=== PATIENT | male | born 1960 | race Caucasian/White ===

== ENCOUNTER 2025-01-24 13:34 | Outpatient (REF) | payer MEDICARE, MEDICAID, SELFPAY ==
[2025-01-24 18:27] LABS: MANUAL DIFF FLAG NO
[2025-01-24 18:31] LABS: Appearance Urine Clear; Glucose Urine UA Negative (Negative); PH 6.0 (5.0-9.0); Specific Gravity - Urine 1.010 (1.005-1.025); UMIC TRIGGER UACC YES
[2025-01-24 18:39] LABS: Hematocrit 42.3 % (42.0-52.0); Hemoglobin 14.1 g/dl (14.0-18.0); Imm Gran Abs Auto 0.05 X10*3/uL (0.00-0.03); Imm Gran Pct Auto 0.6 % (0.0-0.4); Lymphocytes Absolute Auto 1.2 X10*3/uL (1.2-4.9); Mean Corpuscular HGB Conc 33.3 g/dl (31.0-36.0); Mean Corpuscular Hemoglobin 30.7 pg (27.0-33.0); Mean Corpuscular Volume 92.2 fL (80.0-98.0); NRBC Abs Auto 0.000 X10*3/uL (0.0-0.012); NRBC Pct Auto 0.0 /100WBC (0.0-0.2); Platelet Count 313 X10*3/uL (160-400); Red Blood Count 4.59 X10*6/uL (4.60-5.80); White Blood Count 8.8 X10*3/uL (4.8-10.8)
[2025-01-24 18:47] LABS: UACC Culture Trigger YES
[2025-01-24 19:32] LABS: Alanine Aminotransferase 22 U/L (0-40); Albumin Level 4.5 g/dL (3.5-5.0); Alkaline Phosphatase 95 U/L (39-117); Anion Gap 14 (12-20); Aspartate Amino Transferase 20 U/L (5-37); Blood Urea Nitrogen 35 mg/dL (9-16); Calcium 8.6 mg/dL (8.4-10.2); Carbon Dioxide 22 mmol/L (22-29); Chloride 112 mmol/L (96-108); Cholesterol 164 mg/dL (<200); Estimated Glomerular Filt Rate 19; HDL Cholesterol 49 mg/dL (>40); Magnesium 2.2 mg/dL (1.6-2.6); Potassium 4.0 mmol/L (3.3-5.1); Sodium 144 mmol/L (135-145); Total Protein 6.8 g/dL (6.5-8.0); Triglycerides 153 mg/dL (<150)
[2025-01-25 00:08] LABS: Folate 5.4 ng/mL (> or = 4.0); Vitamin B12 215 pg/mL (200-900)
[2025-01-25 08:16] LABS: HBS Num1 0.00 mIU/mL (0-7.99); HBsAGNum1 0.40 S/CO (0.00-0.99); HIV Num 1 0.10 S/CO (0.00-0.99); Hepatitis B Surface Antigen Negative (Negative); ~HepC Num1 0.11 S/CO (0.00-0.79); ~Hepatitis B Surface Antibody NONREACTIVE (Nonreactive); ~Hepatitis C Antibody Nonreactive (Nonreactive)
[2025-01-25 08:21] LABS: Syphilis Screen Nonreactive (Nonreactive)
[2025-01-30 04:18] LABS: VITAMIN D (1,25 OH) D3 22 pg/mL; Vit D (1,25-Dihydroxy) Total 22 pg/mL (18-72); Vitamin D (1,25 OH) D2 <8 pg/mL
== END 2025-01-24 13:35 | disposition home or self-care (01) ==
LOC: HO.HKASLDS 13:34
PROVIDERS: PCP Student in an Organized Health Care Education/Training Program; Visit Provider Student in an Organized Health Care Education/Training Program
DX: F31.9 Bipolar disorder, unspecified (principal); J44.9 Chronic obstructive pulmonary disease, unspecified; L60.2 Onychogryphosis; L30.9 Dermatitis, unspecified; I10 Essential (primary) hypertension; Z93.59 Other cystostomy status; N18.4 Chronic kidney disease, stage 4 (severe); K59.00 Constipation, unspecified; L85.3 Xerosis cutis; E78.5 Hyperlipidemia, unspecified; E03.9 Hypothyroidism, unspecified; Z13.31 Encounter for screening for depression; Z13.39 Encounter for screening examination for other mental health and behavioral disorders; Z13.1 Encounter for screening for diabetes mellitus
CPT/HCPCS: 36415; 80053; 80061; 81001; 82607; 82652; 82746; 83036; 83735; 84443; 85025; 86706; 86780; 86803; 87086; 87088; 87186; 87340; 87389; 96127; 99202

== ENCOUNTER 2025-01-24 13:34 | Outpatient (AMB) | payer MEDICARE, MEDICAID, SELFPAY ==
--- NOTE | 2025-01-24 13:37 | A.OFFPC_ITS ---
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 Accompanied by: Care Provider Allergies No Known Allergies Allergy (Verified 01/24/25 13:42) Tobacco use date assessed: 01/24/25 Fall risk assessment: No Falls in past year Last assessed Fall Risk: 01/24/25 Dental Screening Dental Screen Date: 01/24/25 Did you have a dental visit in the last 12 months?: No Did you have a dental problem in the last 6 months where you did not have access to dental care?: No Was dental information given to patient?: No HPI HPI Comments History of Present Illness Details History of Present Illness The patient is a 64 year old male presenting to [facility] primary care and for medication management. Bipolar Disorder: The patient has a known history of bipolar disorder, specified as type 1 during the visit. His medications for this condition include paroxetine, trazodone, lamotrigine, and bupropion. Chronic Obstructive Pulmonary Disease: The patient has a diagnosis of COPD and a history of smoking for approximately six months. He quit smoking more than six months ago. He uses an albuterol inhaler and is also on fluticasone/salmeterol. Hypertension: The patient has a diagnosis of hypertension, for which he takes amlodipine 5 mg. He was not aware of this diagnosis or the reason for taking the medication. Suprapubic Catheterization: He has a suprapubic catheter in place for bladder issues and is followed by a urologist. He recently experienced bladder spasms and nocturnal leakage, for which Myrbetriq was started within the last week. He also recently completed a 7-day course of Bactrim DS for a urinary tract infection prescribed by his urologist. Chronic Kidney Disease, Stage 4: He has a diagnosis of stage 4 chronic kidney disease. He is not on dialysis and is able to void. Constipation: The patient has a history of constipation and does not have a regular bowel pattern, sometimes going days without a bowel movement. He has been with his current caregiver for about two weeks and has no bowel regimen in place. Xerosis Cutis (Dry Skin): His caregiver reports that his skin is very dry and that he itches his lower legs. Hyperlipidemia: The patient has a diagnosis of hyperlipidemia, for which he takes simvastatin. Hypothyroidism: He has a diagnosis of hypothyroidism and takes levothyroxine. Surgical History: - Suprapubic catheter placement - The patient denies any surgical histor y. Medications: - Albuterol inhaler for COPD - Amlodipine 5 mg for hypertension - Simvastatin for hyperlipidemia - Paroxetine for bipolar disorder - Trazodone for bipolar disorder and sle ep - Myrbetriq for bladder spasms - Levothyroxine for hypothyroidism - Lamotrigine for bipolar disorder - Fluticasone/salmeterol inhaler for FANS CLERK D - Bupropion for bipolar disorder - Bactrim DS (recently completed course for UTI) Social History: - Tobacco Use: He is a former smoker, jesse hopper smoked for about six months and quit more than six months ago. - Living Situation: The patient previous ly [facility], including [facility] and [facility]. - He now lives in the community with a gaviota curiel. - Diet: He eats regular food but is terrell tulous, leading to caregiver concern for possible aspiration. Family History: No family history was discussed. Diagnostic Results: - Labs: Last hemoglobin A1c from the pre vious year was around 5%. Past Medical History - Bipolar 1 disorder - Chronic Obstructive Pulmonary Disease - Hypertension - Chronic kidney disease, stage 4 - Hyperlipidemia - Hypothyroidism - History of bladder spasms - History of constipation - History of urinary tract infections - History of institutionalization in [facility] Health Maintenance - Comprehensive blood work will be drawn , including a CBC, CMP, HbA1c, lipid panel, TSH, urinalysis, vitamin levels, and infectious disease screening. - A Cologuard test will be ordered for [place] cancer screening. - A referral to podiatry will be placed for evaluation and management of his thickened toenails. - The caregiver was advised that the pat ient does not need a referral to see a dentist or an power chisel operator. - The patient will follow up in two week s to review the results of all tests. [facility] Medical History (Updated 01/25/25 @ 12:38 by John Robertsno MD) Hyperlipidemia Xerosis cutis Chronic kidney disease (CKD), stage 4 Suprapubic catheter Hypertension UTI (urinary tract infection) Screening for heart disease Eczema Thickening of toenail Bipolar 1 disorder Constipation Vitamin D deficiency Depressive disorder Personality disorder Bipolar disorder Chronic kidney disease Myopia Obstructive and reflux uropathy, unspecified Hypothyroidism Type 2 diabetes mellitus COPD (chronic obstructive pulmonary disease) Social History (Updated 01/24/25 @ 13:47 by Lisandro Castañeda CMA) Housing: House Alcohol intake: former Patient Tobacco Use Status: Former Tobacco user e-Cigarette/Vaping Use: Never Used Second Hand Smoke Exposure: No service: No Current occupational status: disabled Cognitive needs: No Hearing needs: No Vision needs: Yes Questionnaire PHQ-9 Over the last 2 weeks, how often have you been bothered by any of the following problems? 1. Little interest or pleasure in doing things: not at all 2. Feeling down, depressed, or hopeless: not at all 3. Trouble falling or staying asleep, or sleeping too much: not at all 4. Feeling tired or having little energy: not at all 5. Poor appetite or overeating: not at all 6. Feeling bad about yourself - or that you are a failure or have let yourself or your family down: not at all 7. Trouble concentrating on things, such as reading the newspaper or watching television: not at all 8. Moving or speaking so slowly that other people could have noticed. Or the opposite - being so fidgety or restless that you have been moving around a lot more than usual: not at all 9. Thoughts that you would be better off or of hurting yourself in some way: not at all Total score: 0 Depression Screening Interpretation: Negative Depression Screening Done: Yes 22648 - PHQ-9 Billing: Yes Source: Developed by Drs. Oskar Dubon, Latanya Henry, John Aleman and colleagues, with an educational gonzalo from [employer]. Thrive Questionnaire Date Thrive assessed: 01/24/25 I am a: Parent/Caregiver What is your living situation today?: I have a steady place to live Within the past 12 months, did the food you bought not last and you didn't have the money to get more?: I choose not to answer this question Within the past 12 months, did you worry whether your food would run out before you got money to buy more?: Never true Do you have trouble paying for medicines?: No Do you have trouble getting transportation to medical appointments?: No Do you have trouble paying your heating and electricity bill?: No Do you have trouble taking care of your child, family member or friend?: No Are you currently unemployed and looking for a job?: No Are you interested in more education?: No Please select the resources that you would like help with: None Currently or been in a relationship where the following occur: No concerns reported THRIVE Score: 0 AUDIT C Alcohol Use Questionnaire (AUDIT-C) 1. How often do you have a drink containing alcohol?: Never Total Score: 0 RAMÍREZ-7 AMB Questionnaire RAMÍREZ-7 Date RAMÍREZ - 7 assessed: 01/24/25 Feeling nervous, anxious, or on edge: 1 = Several days Not being able to stop or control worryin = Not at all Worrying too much about different things: 1 = Several days Trouble relaxin = Nearly every day Being so restless that it is hard to sit still: 0 = Not at all Becoming easily annoyed or irritable: 0 = Not at all Feeling afraid as if something awful might happen: 0 = Not at all Total RAMÍREZ-7 score (0-4 normal; 5-9 mild; 10-14 moderate; 15-21 severe): 5 Source: Developed by Drs. Oskar Dubon, Latanya Henry, John Aleman and colleagues, with an educational gonzalo from [employer]. RAMÍREZ-7 Assessment Billing RAMÍREZ-7 Assessment Tool: RAMÍREZ-7 Assessment 26353 Review of Systems Narrative Review of Systems - Constitutional: Reports feeling good. - Integumentary: Caregiver reports the patient has very dry skin and pruritus of the lower legs. - Respiratory: Denies asthma. - Gastrointestinal: Reports history of constipation with no regular bowel pattern. - Genitourinary: Reports bladder spasms and nocturnal leakage. 10-point ROS reviewed and negative except as noted in HPI Physical exam (Primary Care) Vital Signs: Last Vital Signs Temp 97.4 F 01/24/25 13:48 Pulse 102 H 01/24/25 13:48 Resp 22 H 01/24/25 13:48 BP 115/73 01/24/25 13:48 Pulse Ox 93 01/24/25 13:48 Oxygen Delivery Method Room Air 01/24/25 13:48 BMI result Body Mass Index 25.3 Tobacco/Smoking Status: Tobacco use Status Tobacco use date assessed 01/24/25 01/24/25 13:51 Patient Tobacco Use Status Former Tobacco user 01/24/25 13:51 e-Cigarette/Vaping Use Never Used 01/24/25 13:51 PHQ-9: PHQ-9 Score PHQ-9: Total score 0 01/24/25 14:24 Depression Screening Interpretation: Negative Thrive Assessment: Date of Thrive Assessment Date Thrive assessed 01/24/25 01/24/25 13:40 Currently or been in a relationship where the following occur: No concerns reported Narrative Physical Exam General: Well-appearing, in no acute distress. Patient is 64 years old. Vital signs: Within normal limits. HEENT: Normocephalic, atraumatic. PERRLA, EOMI. Conjunctiva clear, sclera anicteric. Oropharynx clear, mucous membranes moist. TMs intact bilaterally. Neck: Supple, no lymphadenopathy, no thyromegaly, no JVD or carotid bruits. Cardiovascular: RRR, normal S1/S2, no murmurs, rubs, or gallops. Peripheral pul ses 2+ and symmetric. No edema. Respiratory: Lungs clear to auscultation bilaterally, no wheezes, rales, or rhonchi. Normal effort. Patient has a history of COPD. Abdomen: Soft, non-tender, non-distended. Normoactive bowel sounds. No hepatosplenomegaly, no masses. Suprapubic catheter in place with brittany-colored urine in the leg bag. MSK: Full range of motion, no joint swelling or deformity. Normal gait. Long, yellow, thickened nails noted. Skin: Warm, dry, intact. No rashes, lesions, or pallor. Dry skin noted, with thickened, reddened, excoriated rash above the left medial ankle. Neuro: Alert and oriented x3. Cranial nerves II-XII intact. Strength 5/5 throughout. Sensation intact. Reflexes 2+ symmetric. Normal coordination and gait. Psych: Appropriate mood and affect. Normal judgment and insight. History of bipolar disorder type 1. Coding Level of Care Code New Pt Level 4 (73283) Diagnoses Bipolar 1 disorder F31.9 COPD (chronic obstructive pulmonary disease) J44.9 Thickening of toenail L60.2 Eczema L30.9 Hypertension I10 Suprapubic catheter Z93.59 Chronic kidney disease (CKD), stage 4 N18.4 Constipation K59.00 Xerosis cutis L85.3 Hyperlipidemia E78.5 Hypothyroidism E03.9 Screening for heart disease Z13.6 Additional Codes RAMÍREZ-7 Assessment Billing - RAMÍREZ-7 Assessment Tool: RAMÍREZ-7 Assessment 23415 ([id number]) PHQ-9 - 43603 - PHQ-9 Billing: Yes ([id number]) Assessment & Plan Assessment & Plan (1) Bipolar 1 disorder: Code(s): F31.9 - Bipolar disorder, unspecified Category: Medical (2) COPD (chronic obstructive pulmonary disease): Code(s): J44.9 - Chronic obstructive pulmonary disease, unspecified Category: Medical (3) Thickening of toenail: Code(s): L60.2 - Onychogryphosis Category: Medical (4) Eczema: Code(s): L30.9 - Dermatitis, unspecified Category: Medical (5) Hypertension: Code(s): I10 - Essential (primary) hypertension Category: Medical (6) Suprapubic catheter: Code(s): Z93.59 - Other cystostomy status Category: Medical (7) Chronic kidney disease (CKD), stage 4: Code(s): N18.4 - Chronic kidney disease, stage 4 (severe) Category: Medical (8) Constipation: Code(s): K59.00 - Constipation, unspecified Category: Medical (9) Xerosis cutis: Code(s): L85.3 - Xerosis cutis Category: Medical (10) Hyperlipidemia: Code(s): E78.5 - Hyperlipidemia, unspecified Category: Medical (11) Hypothyroidism: Code(s): E03.9 - Hypothyroidism, unspecified Category: Medical (12) Screening for heart disease: Code(s): Z13.6 - Encounter for screening for cardiovascular disorders Category: Medical Plan Consent The process for Cologuard testing was explained to the patient's caregiver as an alternative to a colonoscopy for colon cancer screening. It was described that a kit would be mailed to the home, the patient would provide a stool sample in a container, add a fixative liquid, and mail the kit back. The caregiver agreed to this plan, noting it would be better than having the patient undergo sedation for a colonoscopy, and confirmed he could complete the test once his constipation is managed. Patient was informed and verbally consented to the use of an ambient scribe for clinic note documentation during this visit. Plan 1. Bipolar 1 Disorder - A referral will be placed for a behavioral health/psychiatry outpatient consultation for ongoing management. - An EKG will be ordered to monitor for QTc prolongation, given his current psychiatric medications. 2. Chronic Obstructive Pulmonary Disease - An albuterol sulfate inhaler will be prescribed, to be used 2 puffs every 6 hours as needed. 3. Constipation - Prescribing polyethylene glycol, to be taken in the morning and at night until bowel movements become regular, then tapering to nightly. 4. Dermatitis - Lac-Hydrin will be prescribed for generalized xerosis (dry skin). - Triamcinolone 0.1% topical cream will be prescribed for the excoriated rash on his lower leg. - The caregiver was advised to keep the affected area covered to prevent secondary infection from scratching. 5. Suprapubic Catheterization - The patient will continue to follow with his urologist for catheter management, with his next appointment on the of this month. - It was recommended that the urology service should be responsible for ordering his catheter supplies. Discussion Notes I met with the patient and his caregiver today to establish care. We reviewed his complex medical history, including bipolar 1 disorder, COPD, hypertension, stage 4 CKD, and hypothyroidism, as well as his current medication list. The caregiver voiced several concerns, including the patient's constipation, dry and itchy skin, and the need for medication refills and referrals. I explained my plan to order comprehensive baseline lab work and an EKG to get an overall pic ture of his health and monitor for medication side effects. I will send prescriptions for polyethylene glycol for constipation, an albuterol inhaler for COPD, Lac-Hydrin for dry skin, and triamcinolone cream for his dermatitis. I placed referrals for psychiatry and podiatry and advised the caregiver to schedule appointments with a dentist and power chisel operator, which do not need referrals. We discussed colon cancer screening, and after explaining the Cologuard test as a less invasive option than colonoscopy, the caregiver provided consent to proceed. We also discussed that the urology service should be responsible for managing his suprapubic catheter supplies. A follow-up visit is scheduled in two weeks to review all results and adjust the plan as needed. Patient Instructions - We are sending several prescriptions for you: polyethylene glycol for constipation, an albuterol inhaler for breathing, Lac-Hydrin for dry skin, and a steroid cream (triamcinolone) for the rash on your leg. - For the constipation, take the polyethylene glycol in the morning and at night. Once you are having regular bowel movements, you can take it just once at night. - Please go to the lab in our building to have blood tests and an EKG (heart tracing) done. - We have ordered a colon cancer screening test (Cologuard) that will be mailed to your home. Please follow the instructions to collect a stool sample and mail it back. - We are making referrals for you to see a foot doctor (podiatry) and a mental health doctor (psychiatry). Their offices will contact you. - Please make appointments to see a dentist for your teeth and an eye doctor for your glasses. - Continue to see your urologist for your bladder catheter. You should speak with them about ordering your catheter supplies. - Please return for a follow-up appointment in two weeks to go over your test results. Medical Decision Making This is a 64-year-old male with a complex medical and psychiatric history who presents to [facility] care after recently transitioning from a long-term care facility to living in the community. The patient has multiple chronic conditions including bipolar 1 disorder, COPD, hypertension, stage 4 CKD, and hypo thyroidism. Immediate concerns raised by his caregiver, including constipation, xerosis with associated dermatitis, and the need for a rescue inhaler, were addressed with new prescriptions for polyethylene glycol, topical triamcinolone and Lac-Hydrin, and an albuterol inhaler. Due to his multiple psychiatric medications that can affect cardiac conduction, an EKG was ordered to assess his QTc interval. Comprehensive baseline labs were ordered to establish a new baseline for his multiple chronic conditions, particularly his renal function, glycemic status, and lipids. For health maintenance, a Cologuard test was ordered as a non-invasive colon cancer screening tool, given the logistical challenges of a colonoscopy. Continuity of care was established by placing referrals to psychiatry for management of his bipolar disorder and podiatry for his significant onychauxis. The plan is to follow up in two weeks to review all test results and make any necessary adjustments to his management plan. Total Time Statement 30 min Total time spent caring for the patient today includes pre-visit chart review, documentation, review of laboratory and diagnostic imaging results, medication reconciliation, medically necessary evaluation, counseling on diagnoses, care coordination, ordering appropriate tests and medications, review of tests performed by other providers, reporting test results to the patient, and communication with other healthcare providers. Orders: Orders Hepatitis B Surface Antigen 01/24/25 Z13.9 - Encounter for screening, unspecified Hepatitis C Antibody 01/24/25 Z13.9 - Encounter for screening, unspecified TSH reflex Free T4 01/24/25 Z13.9 - Encounter for screening, unspecified Lipid Panel 01/24/25 Z13.9 - Encounter for screening, unspecified Vitamin D 1,25 dihydroxy 01/24/25 Z13.9 - Encounter for screening, unspecified Hepatitis B Surface Antibody 01/24/25 Z13.9 - Encounter for screening, unspecified AMB EKG-In Office 01/24/25 Z13.6 - Encounter for screening for cardiovascular disorders Complete Blood Count Auto Diff 01/24/25 Z13.9 - Encounter for screening, unspec ified Syphilis Screen 01/24/25 Z13.9 - Encounter for screening, unspecified Comprehensive Met. Panel 01/24/25 Z13.9 - Encounter for screening, unspecified HIV Ab/Ag 01/24/25 Z13.9 - Encounter for screening, unspecified UA CC w/rflx Micro + Cult 01/24/25 Z13.9 - Encounter for screening, unspecified Vitamin B12 and Folate 01/24/25 Z13.9 - Encounter for screening, unspecified Hemoglobin A1c 01/24/25 Z13.9 - Encounter for screening, unspecified Magnesium 01/24/25 Z13.9 - Encounter for screening, unspecified Referrals Psychiatry Outpatient Consultation Service F31.9 - Bipolar disorder, unspecified Podiatry Referral L60.2 - Onychogryphosis Behavioral Health Referral F31.9 - Bipolar disorder, unspecified Cologuard Test Z12.11 - Encounter for screening for malignant neoplasm of colon, Z12.12 - Encounter for screening for malignant neoplasm of rectum Medications: New polyethylene glycol 3350 17 grams PO BID 100 ea 0RF K59.00 - Constipation, unspecified albuterol sulfate 90 mcg/actuation 1 puff inhalation Q4-6H 8.5 grams 0RF J44.9 - Chronic obstructive pulmonary disease, unspecified triamcinolone acetonide 0.1% 1 appl topical BID 80 grams 0RF L30.9 - Dermatitis, unspecified ammonium lactate 5% (Lac-Hydrin Five) 1 appl topical BID 226 grams 0RF
[2025-01-24 13:48] VITALS: BP 115/73; PULSE 102; RESP 22; TEMP 36.3; O2SAT 93; BMI 25.3
--- OUTSIDE RECORDS SUMMARY | 2025-01-24 17:42 | XMS_ITS | Encounter Summary ---
Author Organization [facility] Address [address] [place] [address] Care Team Providers Care Exhibit Display Representative Name Role Phone Dajuan Polanco MD Primary Care Provider [phone] Encounter Details Date Type Department Care Team (Late st Contact Info) Description 10/15/2024 Lab Requisition [facility] - Main Lab [address] [facility] [place] [address] Dajuan Polanco MD [address] [place] [address] Malignant neoplasm of thyroid gland (CMS/HCC V24, CMS/HCC V28); Hypothyroidism, unspecified; Type 2 diabetes mellitus with diabetic chronic kidney disease (CMS/HCC V24, CMS/HCC V28); Unspecified mood (affective) disorder (CMS/HCC V24); Vitamin D deficiency, unspecified Social History Tobacco Use Types Packs/Day Years Used Date Smoking Tobacco: Never Assessed Sex and Gender Information Value Date Recorded Sex Assigned at Not on file Legal Sex Male 5:16 AM EST Gender Identity Not on file Sexual Orientation Not on file documented as of this encounter Plan of Treatment Not on file documented as of this encounter Procedures Procedure Name Priority Date/Time Associated Diagnosis Comments LIPID PANEL WITH REFLEX TO DIRECT LDL Routine 10/15/2024 7:18 AM EDT Malignant neoplasm of thyroid gland (CMS/HCC V24, CMS/HCC V28) Hypothyroidism, unspecified Type 2 diabetes mellitus with diabetic chronic kidney disease (CMS/HCC V24, CMS/HCC V28) Unspecified mood (affective) disorder (CMS/HCC V24) Vitamin D deficiency, unspecified VITAMIN D 25 HYDROXY Routine 10/15/2024 7:18 AM EDT Malignant neoplasm of thyroid gland (CMS/HCC V24, CMS/HCC V28) Hypothyroidism, unspecified Type 2 diabetes mellitus with diabetic chronic kidney disease ([facility]/HCC V24, [facility]/HCC V28) Unspecified mood (affective) disorder ([facility]/HCC V24) Vitamin D deficiency, unspecified COMPLETE BLOOD COUNT Routine 10/15/2024 7:18 AM EDT Malignant neoplasm of thyroid gland ([facility] V24, [facility] V28) Hypothyroidism, unspecified Type 2 diabetes mellitus with diabetic chronic kidney disease ([facility]/HCC V24, [facility]/HCC V28) Unspecified mood (affective) disorder ([facility]/HCC V24) Vitamin D deficiency, unspecified TRIIODOTHYRONINE TOTAL Routine 7:18 AM EDT Malignant neoplasm of thyroid gland ([facility] V24, [facility] V28) Hypothyroidism, unspecified Type 2 diabetes mellitus with diabetic chronic kidney disease ([facility]/HCC V24, [facility] V28) Unspecified mood (affective) disorder ([facility] V24) Vitamin D deficiency, unspecified THYROID STIMULATING HORMONE Routine 10/15/2024 7:18 AM EDT Malignant neoplasm of thyroid gland ([facility]/HCC V24, [facility] V28) Hypothyroidism, unspecified Type 2 diabetes mellitus with diabetic chronic kidney disease ([facility]/HCC V24, [facility]/HCC V28) Unspecified mood (affective) disorder ([facility] V24) Vitamin D deficiency, unspecified THYROXINE TOTAL Routine 10/15/2024 7:18 AM EDT Malignant neoplasm of thyroid gland ([facility]/HCC V24, [facility] V28) Hypothyroidism, unspecified Type 2 diabetes mellitus with diabetic chronic kidney disease ([facility]/HCC V24, [facility]/HCC V28) Unspecified mood (affective) disorder ([facility]/HCC V24) Vitamin D deficiency, unspecified HEMOGLOBIN A1C Routine 10/15/2024 7:18 AM EDT Malignant neoplasm of thyroid gland ([facility]/HCC V24, [facility] V28) Hypothyroidism, unspecified Type 2 diabetes mellitus with diabetic chronic kidney disease ([facility]/HCC V24, [facility]/HCC V28) Unspecified mood (affective) disorder (CMS/HCC V24) Vitamin D deficiency, unspecified VITAMIN B12 Routine 10/15/2024 7:18 AM EDT Malignant neoplasm of thyroid gland ([facility] V24, [facility] V28) Hypothyroidism, unspecified Type 2 diabetes mellitus with diabetic chronic kidney disease ([facility] V24, [facility] V28) Unspecified mood (affective) disorder ([facility] V24) Vitamin D deficiency, unspecified COMPREHENSIVE METABOLIC PANEL Routine 10/15/2024 7:18 AM EDT Malignant neoplasm of thyroid gland ([facility] V24, [facility] V28) Hypothyroidism, unspecified Type 2 diabetes mellitus with diabetic chronic kidney disease ([facility] V24, [facility] V28) Unspecified mood (affective) disorder ([facility] V24) Vitamin D deficiency, unspecified documented in this encounter Results * Vitamin B12 (10/15/2024 7:18 AM EDT) [facility] Vitamin B-12 400 250 - 900 pcg/mL LAB CHEMISTRY METHOD 10/15/2024 10:11 AM EDT [facility] Blood Venous blood specimen / Unknown Venipuncture / Unknown 10/15/2024 7:18 AM EDT 10/15/2024 8:38 AM EDT us Dajuan Polanco MD LAB BLOOD ORDERABLES Final R esult [facility] [address] [place] [address], * (ABNORMAL) Vitamin D 25 hydroxy (10/15/2024 7:18 AM EDT) [facility] Vit D, 25-Hydroxy 28.6(L) 30.0 - 80.0 ng/mL LAB CHEMISTRY METHOD 10/15/2024 12:20 PM EDT [facility] Blood Venous blood specimen / Unknown Venipuncture / Unknown 10/15/2024 7:18 AM EDT 10/15/2024 8:38 AM EDT Dajuan Polanco MD LAB BLOOD ORDERABLES Final R esult Performing Organization Address City/[facility]/ZIP Co de Phone Number [facility] [address] [place] [address], [place] [phone] * Hemoglobin A1c (10/15/2024 7:18 AM EDT) [facility] Hemoglobin A1C 5.6 <6.5 % LAB CHEMISTRY METHOD 10/15/2024 1:43 PM EDT [facility] Mean Bld Glu Estim. 114 mg/dL LAB CHEMISTRY METHOD 10/15/2024 1:43 PM EDT [facility] Blood Venous blood specimen / Unknown Venipuncture / Unknown 10/15/2024 7:18 AM EDT 10/15/2024 8:38 AM EDT Dajuan Polanco MD LAB BLOOD ORDERABLES Final R esult Performing Organization Address [facility]/ZIP Co de Phone Number [facility] [address] [place] [address], [place] [phone] * Thyroxine total (10/15/2024 7:18 AM EDT) [facility] T4, Total 10.6 4.5 - 10.9 mcg/dL LAB CHEMISTRY METHOD 10/15/2024 1:39 PM EDT [facility] Blood Venous blood specimen / Unknown Venipuncture / Unknown 10/15/2024 7:18 AM EDT 10/15/2024 8:38 AM EDT us Dajuan Polanco MD LAB BLOOD ORDERABLES Final R esult Performing Organization Address City/[facility]/ZIP Co de Phone Number [facility] [address] [place] [address], [place] [phone] * Triiodothyronine total (10/15/2024 7:18 AM EDT) T3, Total 78.29 60.00 - 181.00 ng/dL LAB CHEMISTRY METHOD 10/15/2024 12:20 PM EDT [facility] Blood Venous blood specimen / Unknown Venipuncture / Unknown 10/15/2024 7:18 AM EDT 10/15/2024 8:38 AM EDT Dajuan Polanco MD LAB BLOOD ORDERABLES Final R esult [facility] [address] [place] [address], [place] [phone] * (ABNORMAL) Thyroid stimulating hormone (10/15/2024 7:18 AM EDT) Pathologist [facility] TSH 4.52(H) 0.40 - 4.00 mcIU/mL LAB CHEMISTRY METHOD 10/15/2024 12:20 PM EDT [facility] Blood Venous blood specimen / Unknown Venipuncture / Unknown 10/15/2024 7:18 AM EDT 10/15/2024 8:38 AM EDT Dajuan Polanco MD LAB BLOOD ORDERABLES Final R esult Performing Organization Address City/[facility]/ZIP Co de Phone Number [facility] [address] [place] [address], [place] [phone] * Lipid panel with reflex to direct LDL (10/15/2024 7:18 AM EDT) Pathologist [facility] Cholesterol 163 0 - 200 mg/dL LAB CHEMISTRY METHOD 10/15/2024 10:11 AM EDT [facility] Triglycerides 63 0 - 150 mg/dL LAB CHEMISTRY METHOD 10/15/2024 10:11 AM EDT [facility] HDL 69 >=40 mg/dL LAB CHEMISTRY METHOD 10/15/2024 10:11 AM EDT [facility] LDL Calculated 81 0 - 100 mg/dL LAB CHEMISTRY METHOD 10/15/2024 10:11 AM T [facility] Comment:Estimated LDL Calcul ated using equation: Total cholesterol - HDL cholesterol - (Triglycerides/5) VLDL Cholesterol Orlin 12.6 mg/dL LAB CHEMISTRY METHOD 10/15/2024 10:11 AM T [facility] Non HDL Chol. (LDL+VLDL) 94 <145 mg/dL LAB CHEMISTRY METHOD 10/15/2024 10:11 AM [facility] Chol/HDL Ratio 2.4 0.0 - 4.4 LAB CHEMISTRY METHOD 10/15/2024 10:11 AM [facility] Blood Venous blood specimen / Unknown Venipuncture / Unknown 10/15/2024 7:18 AM EDT 10/15/2024 8:38 AM EDT Dajuan Polanco MD LAB BLOOD ORDERABLES Final R esult [facility] [address] [place] [address], * (ABNORMAL) Comprehensive metabolic panel (10/15/2024 7:18 AM EDT) Sodium 141 133 - 145 mmol/L LAB CHEMISTRY METHOD 10/15/2024 9:44 AM [facility] Potassium 4.0 3.5 - 5.5 mmol/L LAB CHEMISTRY METHOD 10/15/2024 9:44 AM [facility] Chloride 108 96 - 110 mmol/L LAB CHEMISTRY METHOD 10/15/2024 9:44 AM [facility] CO2 27 21 - 32 mmol/L LAB CHEMISTRY METHOD 10/15/2024 9:44 AM [facility] Anion Gap 6 3 - 11 LAB CHEMISTRY METHOD 10/15/2024 9:44 AM [facility] Glucose 85 70 - 100 mg/dL LAB CHEMISTRY METHOD 10/15/2024 9:44 AM [facility] BUN 40(H) 5 - 25 mg/dL LAB CHEMISTRY METHOD 10/15/2024 9:44 AM [facility] Creatinine 2.96(H) 0.70 - 1.30 mg/dL LAB CHEMISTRY METHOD 10/15/2024 9:44 AM [facility] eGFR 23(L) >=60 mL/min/1. 73m2 LAB CHEMISTRY METHOD 10/15/2024 9:44 AM [facility] Comment:Calculation based on the Chronic Kidney Disease Epidemiology Collaboration (CKD-EPI) equation refit without adjustment for race. BUN/Creatinine Ratio 13.5 LAB CHEMISTRY METHOD 10/15/2024 9:44 AM [facility] Calcium 8.2(L) 8.5 - 10.5 mg/dL LAB CHEMISTRY METHOD 10/15/2024 9:44 AM [facility] AST (SGOT) 19 10 - 42 unit/L LAB CHEMISTRY METHOD 10/15/2024 9:44 AM [facility] ALT (SGPT) 22 10 - 60 unit/L LAB CHEMISTRY METHOD 10/15/2024 9:44 AM [facility] Alkaline Phosphatase 87 42 - 121 unit/L LAB CHEMISTRY METHOD 10/15/2024 9:44 AM [facility] Total Protein 6.4 6.0 - 8.0 g/dL LAB CHEMISTRY METHOD 10/15/2024 9:44 AM [facility] Albumin 3.7 3.2 - 5.0 g/dL LAB CHEMISTRY METHOD 10/15/2024 9:44 AM [facility] Total Bilirubin 0.5 0.0 - 1.4 mg/dL LAB CHEMISTRY METHOD 10/15/2024 9:44 AM [facility] Blood Venous blood specimen / Unknown Venipuncture / Unknown 10/15/2024 7:18 AM EDT 10/15/2024 8:38 AM EDT Dajuan Polanco MD LAB BLOOD ORDERABLES Final R esult [facility] [address] [place] [address], * Complete blood count (10/15/2024 7:18 AM EDT) WBC 5.4 4.8 - 10.8 K/mcL LAB HEMETOLOGY METHOD 10/15/2024 9:32 AM EDT [facility] RBC 4.60 4.50 - 5.50 M/mcL LAB HEMETOLOGY METHOD 10/15[facility]2024 [facility] Hemoglobin 13.8 13.5 - 17.5 g/dL LAB HEMETOLOGY METHOD 10/15/2024 9:32 AM EDT [facility] Hematocrit 42.6 42.0 - 54.0 % LAB HEMETOLOGY METHOD 10/15/2024 9:32 AM [facility] MCV 93.6 79.0 - 98.0 FL LAB HEMETOLOGY METHOD 10/15/2024 9:32 AM EDT [facility] MCH 30.3 27.0 - 32.0 pcg LAB HEMETOLOGY METHOD 10/15/2024 9:32 AM [facility] MCHC 32.4 32.0 - 37.0 g/dL LAB HEMETOLOGY METHOD 10/15/2024 9:32 AM [facility] RDW 13.1 11.0 - 15.0 % LAB HEMETOLOGY METHOD 10/15/2024 9:32 AM [facility] Platelets 267 130 - 400 K/mcL LAB HEMETOLOGY METHOD 10/15/2024 9:32 AM EDT [facility] MPV 9.9 7.0 - 11.0 FL LAB HEMETOLOGY METHOD 10/15/2024 9:32 AM EDT [facility] NRBC 0.0 <1.0 % LAB HEMETOLOGY METHOD 10/15/2024 9:32 AM EDT [facility] NRBC Absolute 0.00 <0.10 K/mcL LAB HEMETOLOGY METHOD 10/15/2024 9:32 AM EDT [facility] Blood Venous blood specimen / Unknown Venipuncture / Unknown 10/15/2024 7:18 AM EDT 10/15/2024 8:38 AM EDT us Dajuan Polanco MD LAB BLOOD ORDERABLES Final R esult [facility] [address] [place] [address], documented in this encounter Visit Diagnoses Diagnosis Malignant neoplasm of thyroid gland (CMS/HCC V24, CMS/HCC V28) Malignant neoplasm of thyroid gland Hypothyroidism, unspecified Type 2 diabetes mellitus with diabetic chronic kidney disease (CMS/HCC V24, [facility]/HCC V28) Unspecified mood (affective) disorder (CMS/HCC V24) Vitamin D deficiency, unspecified documented in this encounter Care Teams Exhibit Display Representative Relationship Specialty Start Date End Date Dajuan Polanco MD [address] [place] [address] PCP - General Family Medicine 01/04/24 documented as of this encounter
--- OUTSIDE RECORDS SUMMARY | 2025-01-24 17:42 | XMS_ITS | Clinical Summary ---
Author Organization 299 [facility] Address [address] [place] [address] Phone Care Team Providers Care Outplacement Consultant Name Role Phone Dajuan Polanco MD Primary Care Provider [phone] Encounters Date Type Department Care Team Description 01/15/2025 Lab Requisition [facility] [address] [place] [address] Geovanni Ba PA Urinary tract infection, site not specified 12/09/2024 Lab Requisition [facility] [address] [place] [address] Dajuan Polanco MD Hypothyroidism, unspecified from Last 3 Months Social History Tobacco Use Types Packs/Day Years Used Date Smoking Tobacco: Never Assessed Sex and Gender Information Value Date Recorded Sex Assigned at Not on file Legal Sex Male 5:16 AM EST Gender Identity Not on file Sexual Orientation Not on file Plan of Treatment Health Maintenance Due Date Last Done Comments COVID-19 Vaccine (#1) 1965 Pneumococcal Vaccine: 50+ Years (1 of 2 - PCV) 1979 Zoster Vaccines (1 of 2) 1979 Colorectal Cancer Screening: Colonoscopy 04/06/2021 04/06/2011 HIV Screening 01/23/2022 Hepatitis C Screening 01/23/2022 Medicare Annual Wellness Visit 01/23/2022 Social Influencers of Health Screening 01/23/2022 Depression Screening 02/21/2024 Influenza Vaccine (#1) 2024 Cholesterol Screening (Lipid Panel) 10/15/2029 10/15/2024 DTaP,Tdap,and Td Vaccines (3 - Td or Tdap) 01/31/2033 01/31/2023, 02/21/2011 RSV Immunization Adult Patients (1 - 1-dose 75+ series) 2035 HIB Vaccines Aged Out No longer eligi ble based on patient's age to complete this topic HPV Vaccines Aged Out No longer eligi ble based on patient's age to complete this topic Hepatitis A Vaccines Aged Out No long er eligible based on patient's age to complete this topic Hepatitis B Vaccines Aged Out No long er eligible based on patient's age to complete this topic IPV Vaccines Aged Out No longer eligi ble based on patient's age to complete this topic MMR Vaccines Aged Out No longer eligi ble based on patient's age to complete this topic Meningococcal ACWY Vaccine Aged Out N o longer eligible based on patient's age to complete this topic Meningococcal B Vaccine Aged Out No l onger eligible based on patient's age to complete this topic RSV Immunization Patients Under 20 months Aged Out No longer eligible b ased on patient's age to complete this topic Varicella Vaccines Aged Out No longer eligible based on patient's age to complete this topic Procedures Procedure Name Priority Date/Time Associated Diagnosis Comments CULTURE URINE Routine 01/15/2025 12:00 AM EST Urinary tract infection, site not specified LAVENDER - EDTA Routine 12/09/2024 7:20 AM EDT Hypothyroidism, unspecified PARATHYROID HORMONE INTACT Routine 12/09/2024 7:20 AM EDT Hypothyroidism, unspecified PHOSPHORUS Routine 12/09/2024 7:20 AM EDT Hypothyroidism, unspecified LIPID PANEL WITH REFLEX TO DIRECT LDL Routine 10/15/2024 7:18 AM EDT Malignant neoplasm of thyroid gland (CMS/HCC V24, CMS/HCC V28) Hypothyroidism, unspecified Type 2 diabetes mellitus with diabetic chronic kidney disease (CMS/HCC V24, CMS/HCC V28) Unspecified mood (affective) disorder (CMS/HCC V24) Vitamin D deficiency, unspecified EXTERNAL COLONOSCOPY REPORT Routine 04/06/2011 8:18 AM EST from Last 3 Months or Most Recently Relevant to Health Maintenance Results * Culture urine (01/15/2025 12:00 AM EST) Culture, Urine 50,000-99,000 CFU/mL Mixed bacterial morphotypes present suggestive of possible contamination during collection. Suggest appropriate recollection if clinically indicated. 01/16/2025 1:[address] [facility] Urine Indwelling urinary catheter / Unknown 01/15/2025 01/15/2025 5:44 PM EST Geovanni WANG LAB MICROBIOLOGY - GENERAL ELENA CASEY Final Result Performing Organization Address City/[facility]/ZIP Co de Phone Number [facility] [address] [place] [address], [place] [phone] * Lavender tube (12/09/2024 7:20 AM EDT) [facility] Extra Tube Hold for add-ons. 12/09/2024 11:[address] [facility] Comment:Auto resulted. Blood Venous blood specimen / Unknown Venipuncture / Unknown 12/09/2024 7:20 AM EDT 12/09/2024 9:53 AM EDT Dajuan Polanco MD LAB BLOOD ORDERABLES Final R esult Performing Organization Address [facility]/ZIP Co de Phone Number [facility] [address] [place] [address], [place] [phone] * Phosphorus (12/09/2024 7:20 AM EDT) [facility] Phosphorus 4.0 2.5 - 4.5 mg/dL LAB CHEMISTRY METHOD 12/09/2024 11:[address] [facility] Blood Venous blood specimen / Unknown Venipuncture / Unknown 12/09/2024 7:20 AM EDT 12/09/2024 9:53 AM EDT us Dajuan Polanco MD LAB BLOOD ORDERABLES Final R esult Performing Organization Address City/[facility]/ZIP Co de Phone Number [facility] [address] [place] [address], [place] [phone] * Parathyroid hormone intact (12/09/2024 7:20 AM EDT) Pathologist [facility] PTH 84.6 18.5 - 88.0 pcg/mL LAB CHEMISTRY METHOD 12/09/2024 12:[address] [facility] Blood Venous blood specimen / Unknown Venipuncture / Unknown 12/09/2024 7:20 AM EDT 12/09/2024 9:53 AM EDT us Dajuan Polanco MD LAB BLOOD ORDERABLES Final R esult [facility] [address] [place] [address], [place] [phone] * Lipid panel with reflex to direct LDL (10/15/2024 7:18 AM EDT) [facility] Cholesterol 163 0 - 200 mg/dL LAB CHEMISTRY METHOD 10/15/2024 10:11 AM [facility] Triglycerides 63 0 - 150 mg/dL LAB CHEMISTRY METHOD 10/15/2024 10:11 AM [facility] HDL 69 >=40 mg/dL LAB CHEMISTRY METHOD 10/15/2024 10:11 AM [facility] LDL Calculated 81 0 - 100 mg/dL LAB CHEMISTRY METHOD 10/15/2024 10:[address] [facility] Comment:Estimated LDL Calcul ated using equation: Total cholesterol - HDL cholesterol - (Triglycerides/5) VLDL Cholesterol Orlin 12.6 mg/dL LAB CHEMISTRY METHOD 10/15/2024 10:11 AM [facility] Non HDL Chol. (LDL+VLDL) 94 <145 mg/dL LAB CHEMISTRY METHOD 10/15/2024 10:11 AM [facility] Chol/HDL Ratio 2.4 0.0 - 4.4 LAB CHEMISTRY METHOD 10/15/2024 10:[address] [facility] Blood Venous blood specimen / Unknown Venipuncture / Unknown 10/15/2024 7:18 AM EDT 10/15/2024 8:38 AM EDT Dajuan Polanco MD LAB BLOOD ORDERABLES Final R esult [facility] [address] [place] [address], * External Colonoscopy Report (04/06/2011 8:18 AM EST) Anatomical Region Laterality Modality Endoscopy Historical Provider GI~PROCEDURE ORDERABLES F inal Result from Last 3 Months or Most Recently Relevant to Health Maintenance Insurance MEDICARE [place]ICA[place] - [place] Care Teams Outplacement Consultant Relationship Specialty Start Date End Date Dajuan Polanco MD [address] [place] [address] PCP - General Family Medicine 01/04/24
--- OUTSIDE RECORDS SUMMARY | 2025-01-24 17:42 | XMS_ITS | Encounter Summary ---
Author Organization [facility] Address [address] [place] [address] Care Team Providers Care Airbrush Artist Photography Name Role Phone Dajuan Polanco MD Primary Care Provider [phone] Encounter Details Date Type Department Care Team (Late st Contact Info) Description 12/09/[address] [facility] - Main Lab [address] [facility] [place] [address] Dajuan Polanco MD [address] [place] [address] Hypothyroidism, unspecified Social History Tobacco Use Types Packs/Day [...] Procedure Name Priority Date/Time Associated Diagnosis Comments LAVENDER - EDTA Routine 12/09/2024 7:20 AM EDT Hypothyroidism, unspecified PHOSPHORUS Routine 12/09/2024 7:20 AM EDT Hypothyroidism, unspecified PARATHYROID HORMONE INTACT Routine 12/09/2024 7:20 AM EDT Hypothyroidism, unspecified documented in this encounter Results * Lavender tube (12/09/2024 7:20 AM EDT) Extra Tube Hold for add-ons. 12/09/2024 11:01 AM EDT [facility] ([facility] Comment:Auto resulted. Blood Venous blood specimen / Unknown Venipuncture / Unknown 12/09/2024 7:20 AM EDT 12/09/2024 9:53 AM EDT Dajuan Polanco MD LAB BLOOD ORDERABLES Final R esult Performing Organization Address [facility] Co de Phone Number [facility] [address] [place] [address], [place] [phone] * Parathyroid hormone intact (12/09/2024 7:20 AM EDT) PTH 84.6 18.5 - 88.0 pcg/mL LAB CHEMISTRY METHOD 12/09/2024 12:42 PM EDT [facility] Blood Venous blood specimen / Unknown Venipuncture / Unknown 12/09/2024 7:20 AM EDT 12/09/2024 9:53 AM EDT Dajuan Polanco MD LAB BLOOD ORDERABLES Final R esult Performing Organization Address [facility] Co de Phone Number [facility] [address] [place] [address], [place] [phone] * Phosphorus (12/09/2024 7:20 AM EDT) Pathologist [facility] Phosphorus 4.0 2.5 - 4.5 mg/dL LAB CHEMISTRY METHOD 12/09/2024 11:01 AM EDT [facility] Blood Venous blood specimen / Unknown Venipuncture / Unknown 12/09/2024 7:20 AM EDT 12/09/2024 9:53 AM EDT Dajuan Polanco MD LAB BLOOD ORDERABLES Final R esult Performing Organization Address City/[facility]/ZIP Co de Phone Number [facility] [address] [place] [address], [place] [phone] documented in this encounter Visit Diagnoses Diagnosis Hypothyroidism, unspecified documented in this encounter Care Teams Airbrush Artist Photography Relationship Specialty Start Date End Date Dajuan Polanco MD [address] [place] [phone] PCP - General Family Medicine 01/04/24 documented as of this encounter
--- OUTSIDE RECORDS SUMMARY | 2025-01-24 17:42 | XMS_ITS | Encounter Summary ---
Author Organization [facility] Address [address] [place] [address] Care Team Providers Care Supervisor Body Assembly Name Role Phone Dajuan Polanco MD Primary Care Provider [phone]- [phone] Encounter Details Date Type Department Care Team (Late st Contact Info) Description 01/01/2024 Lab Requisition [facility] - Main Lab [address] [facility] [place] [address] Dajuan Polanco MD [address] [place] [address] Social History Tobacco Use Types Packs/Day Years Used Date Smoking Tobacco: Never Assessed Sex and Gender Information Value Date Recorded Sex Assigned at Not on file Legal Sex Male 5:16 AM EST Gender Identity Not on file Sexual Orientation Not on file documented as of this encounter Plan of Treatment Not on file documented as of this encounter Visit Diagnoses Not on filedocumented in this encounter Additional Health Concerns Infection Onset Date Last Indicated Resolved Time Influenza 04/13/2024 04/13/2024 05/07/2024 7:04 PM EDT Respiratory Rule-Out 04/14/2024 04/13/2024 025 11:40 AM EST documented as of this encounter Care Teams Supervisor Body Assembly Relationship Specialty Start Date End Date Dajuan Polanco MD [address] [place] [address] PCP - General Family Medicine 01/04/24 documented as of this encounter
--- OUTSIDE RECORDS SUMMARY | 2025-01-24 17:42 | XMS_ITS | Encounter Summary ---
Author Organization [facility] Address [address] [place] [address] Care Team Providers Care Prism Inspector Name Role Phone Dajuan Polanco MD Primary Care Provider + [phone] Encounter Details Date Type Department Care Team (Late st Contact Info) Description 01/01/2024 Lab Requisition [facility] - Main Lab [address] [facility] [place] [address] Dajuan Polanco MD [address] [place] [address] Other abnormal tumor markers; Hypothyroidism, unspecified Social History Tobacco Use Types [...] Procedure Name Priority Date/Time Associated Diagnosis Comments THYROID STIMULATING HORMONE WITH REFLEX TO FREE T4 AND FREE T3 Routine 01/01/2024 9:41 AM EST Other abnormal tumor markers Hypothyroidism, unspecified FREE THYROXINE WITH REFLEX TO FREE TRIIODOTHYRONINE Routine 01/01/2024 9:41 AM EST Other abnormal tumor markers Hypothyroidism, unspecified ALPHA FETOPROTEIN TUMOR MARKER Routine 01/01/2024 9:41 AM EST Other abnormal tumor markers Hypothyroidism, unspecified THYROGLOBULIN ANTIBODY Routine 9:41 AM EST Other abnormal tumor markers Hypothyroidism, unspecified TRIIODOTHYRONINE FREE Routine 01/01/2024 9:41 AM EST Other abnormal tumor markers Hypothyroidism, unspecified documented in this encounter Results * Triiodothyronine free (01/01/2024 9:41 AM EST) T3, Free 320 230 - 420 pcg/dL LAB CHEMISTRY METHOD 01/01/2024 2:10 PM EST [facility] Blood Venous blood specimen / Unknown Venipuncture / Unknown 01/01/2024 9:41 AM EST 01/01/2024 10:49 AM EST Dajuan Polanco MD LAB BLOOD ORDERABLES Final R esult Performing Organization Address City/[facility]/ZIP Co de Phone Number [facility] [address] [place] [address], [place] [phone] * Free thyroxine with reflex to free triiodothyronine (01/01/2024 9:41 AM EST) Free T4 1.38 0.70 - 1.80 ng/dL LAB CHEMISTRY METHOD 01/01/2024 1:44 PM EST [facility] Blood Venous blood specimen / Unknown Venipuncture / Unknown 01/01/2024 9:41 AM EST 01/01/2024 10:49 AM EST Dajuan Polanco MD LAB BLOOD ORDERABLES Final R esult [facility] [address] [place] [address], [place] [phone] * Alpha fetoprotein tumor marker (01/01/2024 9:41 AM EST) AFP 3.2 0.0 - 8.0 ng/mL LAB CHEMISTRY METHOD 01/01/2024 1:06 PM EST [facility] Blood Venous blood specimen / Unknown Venipuncture / Unknown 01/01/2024 9:41 AM EST 01/01/2024 10:49 AM EST Narrative [facility] - 01/01/2024 1:06 PM EST The Siemens Advia Centaur Chemiluminescent Immunoassay is used. Results obtained with different assay methods or kits cannot be used interchangeably. Results cannot be interpreted as absolute evidence of the presence or absence of malignant disease. Dajuan Polanco MD LAB BLOOD ORDERABLES Final R esult Performing Organization Address [facility] Co de Phone Number [facility] [address] [place] [address], [place] [phone] * (ABNORMAL) Thyroglobulin antibody (01/01/2024 9:41 AM EST) Antithyroglobulin Ab 91.0(H) <=60.0 I Unit/mL LAB CHEMISTRY METHOD 01/01/2024 1:26 PM EST [facility] Blood Venous blood specimen / Unknown Venipuncture / Unknown 01/01/2024 9:41 AM EST 01/01/2024 10:49 AM EST Dajuan Polanco MD LAB BLOOD ORDERABLES Final R esult Performing Organization Address [facility] Co de Phone Number [facility] [address] [place] [address], [place] [phone] * (ABNORMAL) Thyroid stimulating hormone with reflex to free t4 and free t3 (01/01/2024 9:41 AM EST) TSH 6.77(H) 0.40 - 4.00 mcIU/mL LAB CHEMISTRY METHOD 01/01/2024 1:19 PM EST [facility] Blood Venous blood specimen / Unknown Venipuncture / Unknown 01/01/2024 9:41 AM EST 01/01/2024 10:49 AM EST Dajuan Polanco MD LAB BLOOD ORDERABLES Final R esult Performing Organization Address [facility] Co de Phone Number [facility] [address] [place] [address], documented in this encounter Visit Diagnoses Diagnosis Other abnormal tumor markers Hypothyroidism, unspecified documented in this encounter Additional Health Concerns Infection Onset Date Last Indicated Resolved Time Influenza 04/13/2024 04/13/2024 05/07/2024 7:04 PM EDT Respiratory Rule-Out 04/14/2024 04/13/2024 025 11:40 AM EST documented as of this encounter Care Teams Prism Inspector Relationship Specialty Start Date End Date Dajuan Polanco MD [address] [place] [address] PCP - General Family Medicine 01/04/24 documented as of this encounter
--- OUTSIDE RECORDS SUMMARY | 2025-01-24 17:42 | XMS_ITS | Encounter Summary ---
Author Organization [facility] Address [address] [place] [address] Care Team Providers Care Organic Search Lead Name Role Phone Dajuan Polanco MD Primary Care Provider [phone]- [phone] Encounter Details Date Type Department Care Team (Late st Contact Info) Description 04/11/2024 Lab Requisition [facility] - Main Lab [address] [place] [address] Dajuan Polanco MD [address] [place] [address] Weakness Social History Tobacco Use Types Packs/Day Years [...] Procedure Name Priority Date/Time Associated Diagnosis Comments COMPLETE BLOOD COUNT Routine 04/11/2024 7:59 AM EST Weakness BASIC METABOLIC PANEL Routine 04/11/2024 7:59 AM EST Weakness documented in this encounter Results * (ABNORMAL) Basic metabolic panel (04/11/2024 7:59 AM EST) Sodium 140 133 - 145 mmol/L LAB CHEMISTRY METHOD 04/11/2024 12:04 PM EST [facility] Potassium 4.0 3.5 - 5.5 mmol/L LAB CHEMISTRY METHOD 04/11/2024 12:04 PM EST [facility] Chloride 105 96 - 110 mmol/L LAB CHEMISTRY METHOD 04/11/2024 12:04 PM EST [facility] CO2 26 21 - 32 mmol/L LAB CHEMISTRY METHOD 04/11/2024 12:04 PM [facility] Anion Gap 9 3 - 11 LAB CHEMISTRY METHOD 04/11/2024 12:04 PM [facility] Glucose 123(H) 70 - 100 mg/dL LAB CHEMISTRY METHOD 04/11/2024 12:04 PM [facility] BUN 29(H) 5 - 25 mg/dL LAB CHEMISTRY METHOD 04/11/2024 12:04 PM [facility] Creatinine 2.90(H) 0.70 - 1.30 mg/dL LAB CHEMISTRY METHOD 04/11/2024 12:04 PM [facility] eGFR 24(L) >=60 mL/min/1. 73m2 LAB CHEMISTRY METHOD 04/11/2024 12:04 PM [facility] Comment:Calculation based on the Chronic Kidney Disease Epidemiology Collaboration (CKD-EPI) equation refit without adjustment for race. BUN/Creatinine Ratio 10.0 LAB CHEMISTRY METHOD 04/11/2024 12:04 PM [facility] Calcium 8.3(L) 8.5 - 10.5 mg/dL LAB CHEMISTRY METHOD 04/11/2024 12:04 PM [facility] Blood Venous blood specimen / Unknown Venipuncture / Unknown 04/11/2024 7:59 AM EST 04/11/2024 11:02 AM EST us Dajuan Polanco MD LAB BLOOD ORDERABLES Final R esult [facility] [address] [place] [address], * (ABNORMAL) Complete blood count (04/11/2024 7:59 AM EST) WBC 4.6(L) 4.8 - 10.8 K/mcL LAB HEMETOLOGY METHOD 04/11/2024 12:41 PM [facility] RBC 4.30(L) 4.50 - 5.50 M/mcL LAB HEMETOLOGY METHOD 04/11/2024 12:41 PM [facility] Hemoglobin 13.1(L) 13.5 - 17.5 g/dL LAB HEMETOLOGY METHOD 04/11/2024 12:41 PM [facility] Hematocrit 40.7(L) 42.0 - 54.0 % LAB HEMETOLOGY METHOD 04/11/2024 12:41 PM [facility] MCV 94.4 79.0 - 98.0 FL LAB HEMETOLOGY METHOD 04/11/2024 12:41 PM [facility] MCH 30.4 27.0 - 32.0 pcg LAB HEMETOLOGY METHOD 04/11/2024 12:41 PM [facility] MCHC 32.2 32.0 - 37.0 g/dL LAB HEMETOLOGY METHOD 04/11/2024 12:41 PM [facility] RDW 13.8 11.0 - 15.0 % LAB HEMETOLOGY METHOD 04/11/2024 12:41 PM [facility] Platelets 237 130 - 400 K/mcL LAB HEMETOLOGY METHOD 04/11/2024 12:41 PM [facility] MPV 10.1 7.0 - 11.0 FL LAB HEMETOLOGY METHOD 04/11/2024 12:41 PM [facility] NRBC 0.0 <1.0 % LAB HEMETOLOGY METHOD 04/11/2024 12:41 PM [facility] NRBC Absolute 0.00 <0.10 K/mcL LAB HEMETOLOGY METHOD 04/11/2024 12:41 PM [facility] Blood Venous blood specimen / Unknown Venipuncture / Unknown 04/11/2024 7:59 AM EST 04/11/2024 11:02 AM EST us Dajuan Polanco MD LAB BLOOD ORDERABLES Final R esult [facility] [address] [place] [address], documented in this encounter Visit Diagnoses Diagnosis Weakness Other malaise and fatigue documented in this encounter Additional Health Concerns Infection Onset Date Last Indicated Resolved Time Influenza 04/13/2024 04/13/2024 05/07/2024 7:04 PM EDT Respiratory Rule-Out 04/14/2024 04/13/2024 025 11:40 AM EST documented as of this encounter Care Teams Organic Search Lead Relationship Specialty Start Date End Date Dajuan Polanco MD [address] [place] [address] PCP - General Family Medicine 01/04/24 documented as of this encounter
--- OUTSIDE RECORDS SUMMARY | 2025-01-24 17:42 | XMS_ITS | Encounter Summary ---
Author Organization [facility] Address [address] [place] [address] Care Team Providers Care Log Washer Name Role Phone Dajuan Polanco MD Primary Care Provider [phone]- [phone] Encounter Details Date Type Department Care Team (Late st Contact Info) Description 04/14/2024 Lab Requisition [facility] - Main Lab [address] [place] [address] Dajuan Polanco MD [address] [place] [address] Acute cough Social History Tobacco Use Types Packs/Day Years [...] Procedure Name Priority Date/Time Associated Diagnosis Comments [id number], RSV, FLU A AND B QUALITATIVE RT-PCR, LOCAL REFERENCE LAB Routine 04/13/2024 12:00 AM EST Acute cough documented in this encounter Results * (ABNORMAL) [id number], RSV, Influenza A and B qualitative RT-PCR (04/13/2024 12:00 AM EST) SARS COV-2 Not Detected Not Detected LAB MOLECULAR DIAGNOSTICS METHOD 2024 11:40 AM EST [facility] Comment: Disclaimer: The manner in which this information is used to guide patient care is the responsibility of the healthcare provider. Testing was performed using the [employer] m SARS-CoV-2 test. This test has been authorized by FDA under an Emergency Use Authorization (EUA). This test is only authorized for the duration of time the declaration that circumstances exist justifying the authorization of the emergency use of in vitro diagnostic tests for detection of SARS-CoV-2 virus and/or diagnosis of COVID-19 infection under section 564(b)(1) of the Act, 21 U.S.C. 360bbb- 3(b)(1), unless the authorization is terminated or revoked sooner. Fact sheet for Healthcare Providers can be found at: https://www.fda.gov/media/808710/download Fact sheet for Patients can be found at: https://www.fda.gov/media/937766/download Influenza A PCR Detected(A ) Not Detected LAB MOLECULAR DIAGNOSTICS METHOD 2024 11:40 AM EST [facility] Comment:This patient is posi tive for influenza A. If the patient is admitted, please order the Respiratory Virus Panel PCR (Epic ID: [id number]) so our lab can subtype the influenza A, per CDC recommendations. Influenza B PCR Not Detected Not Detected LAB MOLECULAR DIAGNOSTICS METHOD 2024 11:40 AM EST [facility] RSV PCR Not Detected Not Detected LAB MOLECULAR DIAGNOSTICS METHOD 2024 11:40 AM [facility] Swab Nasopharyngeal structure / Unknown Non-blood Collection / Unknown 04/13/2024 04/14/2024 11:18 AM EST Dajuan Polanco MD LAB MICROBIOLOGY - GENERAL O RDERABLES Final Result [facility] [address] [place] [address], documented in this encounter Visit Diagnoses Diagnosis Acute cough documented in this encounter Additional Health Concerns Infection Onset Date Last Indicated Resolved Time Influenza 04/13/2024 04/13/2024 05/07/2024 7:04 PM EDT Respiratory Rule-Out 04/14/2024 04/13/2024 025 11:40 AM EST documented as of this encounter Care Teams Log Washer Relationship Specialty Start Date End Date Dajuan Polanco MD [address] [place] [address] PCP - General Family Medicine 01/04/24 documented as of this encounter
--- OUTSIDE RECORDS SUMMARY | 2025-01-24 17:42 | XMS_ITS | Encounter Summary ---
Author Organization [facility] Address [address] [place] [address] Care Team Providers Care Top Tile Decorator Name Role Phone Dajuan Polanco MD Primary Care Provider [phone]- [phone] Encounter Details Date Type Department Care Team (Late st Contact Info) Description 01/15/2025 Lab Requisition [facility] - Main Lab [address] [place] [address] Geovanni Ba PA [address] [place] [address] Urinary tract infection, site not specified Social History Tobacco Use Types Packs/Day Years [...] EST Urinary tract infection, site not specified documented in this encounter Results * Culture urine (01/15/2025 12:00 AM EST) Culture, Urine 50,000-99,000 CFU/mL Mixed bacterial morphotypes present suggestive of possible contamination during collection. Suggest appropriate recollection if clinically indicated. 01/16/2025 1:31 PM EST [facility] Urine Indwelling urinary catheter / Unknown 01/15/2025 01/15/2025 5:44 PM EST us Geovanni WANG LAB MICROBIOLOGY - GENERAL ORDE CARMELA Final Result [facility] [address] [place] [address], documented in this encounter Visit Diagnoses Diagnosis Urinary tract infection, site not specified documented in this encounter Care Teams Top Tile Decorator Relationship Specialty Start Date End Date Dajuan Polanco MD [address] [place] [address] PCP - General Family Medicine 01/04/24 documented as of this encounter
== END 2025-01-24 14:55 | disposition home or self-care (01) ==
PROVIDERS: PCP Student in an Organized Health Care Education/Training Program; Visit Provider Student in an Organized Health Care Education/Training Program
DX: F31.9 Bipolar disorder, unspecified (principal); J44.9 Chronic obstructive pulmonary disease, unspecified; L60.2 Onychogryphosis; L30.9 Dermatitis, unspecified; I12.9 Hypertensive chronic kidney disease with stage 1 through stage 4 chronic kidney disease, or unspecified chronic kidney disease; Z93.59 Other cystostomy status; N18.4 Chronic kidney disease, stage 4 (severe); K59.00 Constipation, unspecified; L85.3 Xerosis cutis; E78.5 Hyperlipidemia, unspecified; E03.9 Hypothyroidism, unspecified; Z13.6 Encounter for screening for cardiovascular disorders

== ENCOUNTER 2025-02-06 13:59 | Outpatient (AMB) | payer MEDICARE, MEDICAID, SELFPAY ==
--- NOTE | 2025-02-06 14:01 | A.OFFPC_ITS ---
Vital Signs 02/06/25 14:05 Height 5 ft 10 in Weight 177 lb 4 oz BMI 25.4 BP 135/77 Blood Pressure Location Rt brachial Position Sitting Pulse 91 Pulse Source Pulse Oximeter Temp 98.2 F Temp Source Oral Pulse Oximetry (%) 96 Oxygen Delivery Method Room Air Intake Visit Reasons: 2 wk lab review Intake Note: Patient present for lab review. Investor Relations Specialist Required: No Accompanied by: caregiver Allergies No Known Allergies Allergy (Verified 02/06/25 14:05) Medication List - Last Reconciled 02/08/25 by John Robertson MD albuterol sulfate 90 mcg/actuation 1 puff inhalation Q4-6H amlodipine 5 mg PO DAILY ammonium lactate 5% (Lac-Hydrin Five) 1 appl topical BID bupropion HCl XL 150 mg PO DAILY fluticasone propion-salmeterol 250-50 mcg/dose 1 ea inhalation BID lamotrigine 100 mg PO BID levothyroxine 137 mcg PO DAILY mecobalamin (vitamin B12) 1,000 mcg sublingual BEDTIME mirabegron ER (Myrbetriq) 25 mg PO DAILY nitrofurantoin macrocrystal 100 mg PO BID paroxetine HCl 30 mg PO DAILY polyethylene glycol 3350 17 grams PO BID simvastatin 20 mg PO BEDTIME trazodone 25 mg PO DAILY triamcinolone acetonide 0.1% 1 appl topical BID Tobacco use date assessed: 01/24/25 Dental Screening Dental Screen Date: 01/24/25 HPI HPI Comments History of Present Illness Details History of Present Illness The patient is a 64 year old male presenting for review of recent laboratory results and medication management. Chronic Kidney Disease, Stage 4: The patient has a diagnosis of stage 4 chronic kidney disease (CKD). His baseline kidney function is unknown as prior labs were not available. Recent labs show a BUN of 35, creatinine of 3.27, and an eGFR of 19. Despite his CKD, his hemoglobin is 14.1, which is considered appropriate. A urinalysis showed 1+ protein. Urinary Tract Infection and Suprapubic Catheter: The patient has an indwelling suprapubic catheter and sees a urologist monthly for changes. He has had issues with drainage around the catheter site and was treated twice for an infection, including with Bactrim by his urologist. A recent UTI was suspected as the cause for his borderline high neutrophils of 73. Recent urinalysis confirmed an infection, showing positive nitrites and moderate leukocyte esterase. Diabetes Mellitus: The patient has a historical diagnosis of diabetes, which was considered a possible cause of his chronic kidney disease. However, recent lab work revealed a random glucose of 98 and a hemoglobin A1c of 5.4%, indicating he is not currently diabetic or pre-diabetic. Low-Normal Vitamin B12: A recent lab test showed a vitamin B12 level of 215, which is at the low end of the normal range of 200-700. Hyperlipidemia: The patient's lipid panel was largely normal, with great total cholesterol, LDL, and HDL levels. Triglycerides were slightly elevated at 153 on a non-fasting sample. Surgical History: - Suprapubic catheter placement Medications: - Amlodipine - Inhaler (unspecified) - Lamotrigine - Levothyroxine - Myrbetriq - Paroxetine - Polyethylene glycol - Simvastatin - Trazodone for sleep - Triamcinolone for skin - Wellbutrin - Eucerin ([id number]), used in pl mannie of Lac-Hydrin Social History: - The patient resides at home and has an actively involved caregiver. - He receives support from a nurse, soci al worker, assistant case manager, and DDS services. - Diet: A renal diet has been recommende d. Family History: - No family history was discussed. Diagnostic Results: - Labs: - WBC: Normal. - RBC: 4.59 (ref >4.6). - Hemoglobin: 14.1 (ref >14.0). - MCV: 92. - Neutrophils: 73 (ref ???73). - Sodium/Potassium: Normal. - BUN: 35. - Creatinine: 3.27. - eGFR: 19, consistent with stage 4 CKD. - Random Glucose: 98. - Hemoglobin A1c: 5.4%. - Liver Function Tests: Normal. - Lipid Panel: Total cholesterol, LDL, a nd HDL are normal; Triglycerides 153 (ref <150) on a non-fasting sample. - Vitamin B12: 215 (ref 200-700). - Vitamin D, Folate, Thyroid: Normal. - Syphilis, Hepatitis B, Hepatitis C, HI V: Negative. - Urinalysis: 1+ protein, positive nitri liliane, and moderate leukocyte esterase. Past Medical History - Chronic kidney disease, stage 4 - History of diabetes mellitus (currentl y controlled with A1c of 5.4%) - Indwelling suprapubic catheter - Recurrent urinary tract infections - Hypothyroidism (inferred from levothyr oxine use) - Psychiatric history (inferred from adam otrigine, paroxetine, Wellbutrin use) - Insomnia (inferred from trazodone use) Health Maintenance - Placed referrals for podiatry and [facility]. - A referral for Cologuard has been plac ed for colon cancer screening. - Follow up in this office in 3 months. med rec summary This summary provides an overview of the medical status of a 64-year-old male residing in a long-term care facility, [place] [facility] [place]. He has a complex medical history with multiple, stable chronic medical and psychiatric conditions. Throughout 2024, he has been monitored regularly by primary care providers, including Leo Cheek PA-C, and Dajuan Polanco MD, with no acute medical events reported. He is ambulatory, generally interactive, and denies pain, chest pain, or shortness of breath in most encounters. The patient's most significant pre-existing conditions include hypertensive chronic kidney disease (CKD) stage IV, with a baseline creatinine around 2.96 and a GFR of 15-29 ml/min.?He also has a history of thyroid cancer, treated with a total thyroidectomy and neck dissection, resulting in subsequent hypothyroidism.?Other notable diagnoses include COPD (not oxygen dependent), type 2 diabetes mellitus (well-controlled with an A1c of 5.6), hyperlipidemia, hypertension, urinary retention with cystostomy status, and a history of tobacco use (3 cigarettes per day). From a psychiatric standpoint, the patient carries diagnoses of mood disorder, major depressive disorder, bipolar disorder, and personality disorder.?His mood is generally managed with a multi-drug regimen, and he is often described as cheerful and cooperative.?However, nursing staff have occasionally noted periods of increased irritability and intrusive behaviors, which prompted a psychiatric consultation request in October 2024. Providers have expressed concern that a gradual dose reduction of his psychiatric medications could lead to decompensation. Throughout the reviewed period, the patient's physical examinations have been consistently stable. Vital signs, including oxygen saturation on room air, have remained within normal limits, though a one-time elevated blood pressure of 179/92 was noted on November 05, 2024, with a plan to recheck before making changes.?His weight has been stable around 172-173 lbs.?A dietary note from May 21, 2024, mentioned a significant but questioned 30 lb weight loss, recommending a reweigh to confirm; subsequent weights do not reflect this loss.?Laboratory results from September 2024 confirmed his stable CKD stage IV, well-controlled diabetes, and subclinical hypothyroidism (TSH 4.52). The treatment plan is centered on managing his numerous chronic conditions and maintaining stability. This involves continuing his current medication regimen and consistent follow-up with multiple specialists. His care plan has consistently emphasized the avoidance of nephrotoxic agents due to his advanced kidney disease, monitoring renal function, and following up with nephrology.?He receives care for his cystostomy, follows up with urology, and is managed for COPD with inhalers and encouragement to cease smoking.?He has been seen for routine primary care, and his care is also documented in various reports, including treatment administration records and order summaries. The patient's prognosis is related to the management of his multiple advanced chronic illnesses, particularly his stage IV chronic kidney disease and COPD. The plan is for ongoing medical management without aggressive interventions. His advance directives have been documented multiple times and are generally consistent: Full Resuscitate, Do Not Intubate (DNI), use of non-invasive ventilation, transfer to hospital if needed, use of artificial hydration, and no dialysis.?He has been undecided on the use of artificial nutrition.?A Medical Orders for Life Sustaining Treatment (MOLST) form was also on file from April 2022. The patient has numerous active diagnoses, including: chronic kidney disease stage IV, COPD, type 2 diabetes mellitus, essential hypertension, hyperlipidemia, hypothyroidism (post-thyroidectomy for thyroid cancer), major depressive disorder, bipolar disorder, and urinary retention with cystostomy. ?[facility] long-term medications include: amlodipine for hypertension; simvastatin for hyperlipidemia; levothyroxine for hypothyroidism; Advair or fluticasone- salmeterol for COPD; and a psychiatric combination of paroxetine (Paxil), lamotrigine (Lamictal), bupropion, and trazodone for his mood disorders.?The plan is to continue this regimen with regular monitoring and specialist follow- up. [facility] Medical History (Updated 02/08/25 @ 17:08 by John Robertson MD) History of thyroid cancer Hyperlipidemia Xerosis cutis Chronic kidney disease (CKD), stage 4 Suprapubic catheter Hypertension UTI (urinary tract infection) Screening for heart disease Eczema Thickening of toenail Bipolar 1 disorder Constipation Vitamin D deficiency Depressive disorder Personality disorder Bipolar disorder Chronic kidney disease Myopia Obstructive and reflux uropathy, unspecified Hypothyroidism Type 2 diabetes mellitus COPD (chronic obstructive pulmonary disease) Social History (Updated 02/06/25 @ 14:05 by Lisandro Castañeda CMA) Housing: House Alcohol intake: former Patient Tobacco Use Status: Former Tobacco user e-Cigarette/Vaping Use: Never Used Second Hand Smoke Exposure: No service: No Current occupational status: disabled Cognitive needs: No Hearing needs: No Vision needs: Yes Questionnaire PHQ-9 Over the last 2 weeks, how often have you been bothered by any of the following problems? 1. Little interest or pleasure in doing things: not at all 2. Feeling down, depressed, or hopeless: not at all 3. Trouble falling or staying asleep, or sleeping too much: not at all 4. Feeling tired or having little energy: not at all 5. Poor appetite or overeating: not at all 6. Feeling bad about yourself - or that you are a failure or have let yourself or your family down: not at all 7. Trouble concentrating on things, such as reading the newspaper or watching television: not at all 8. Moving or speaking so slowly that other people could have noticed. Or the opposite - being so fidgety or restless that you have been moving around a lot more than usual: not at all 9. Thoughts that you would be better off or of hurting yourself in some way: not at all Total score: 0 Depression Screening Interpretation: Negative Depression Screening Done: Yes 97977 - PHQ-9 Billing: Yes Source: Developed by Drs. Oskar Dubon, Latanya Henry, John Aleman and colleagues, with an educational gonzalo from [employer]. Thrive Questionnaire Date Thrive assessed: 01/24/25 I am a: Parent/Caregiver What is your living situation today?: I have a steady place to live Within the past 12 months, did the food you bought not last and you didn't have the money to get more?: I choose not to answer this question Within the past 12 months, did you worry whether your food would run out before you got money to buy more?: Never true Do you have trouble paying for medicines?: No Do you have trouble getting transportation to medical appointments?: No Do you have trouble paying your heating and electricity bill?: No Do you have trouble taking care of your child, family member or friend?: No Do you have trouble with day-to-day activities such as bathing, preparing meals, shopping, managing finances, etc.?: Yes Are you currently unemployed and looking for a job?: No Are you interested in more education?: No Please select the resources that you would like help with: None Currently or been in a relationship where the following occur: No concerns reported THRIVE Score: 0 RAMÍREZ-7 AMB Questionnaire RAMÍREZ-7 Date RAMÍREZ - 7 assessed: 01/24/25 Feeling nervous, anxious, or on edge: 1 = Several days Not being able to stop or control worryin = Not at all Worrying too much about different things: 1 = Several days Trouble relaxin = Nearly every day Being so restless that it is hard to sit still: 0 = Not at all Becoming easily annoyed or irritable: 0 = Not at all Feeling afraid as if something awful might happen: 0 = Not at all Total RAMÍREZ-7 score (0-4 normal; 5-9 mild; 10-14 moderate; 15-21 severe): 5 Source: Developed by Drs. Oskar Dubon, Latanya Henry, John Aleman and colleagues, with an educational gonzalo from [employer]. RAMÍREZ-7 Assessment Billing RAMÍREZ-7 Assessment Tool: RAMÍREZ-7 Assessment 06847 Review of Systems Narrative Review of Systems - A formal review of systems was not conducted as the patient was not present for the visit. 10-point ROS reviewed and negative except as noted in HPI Physical exam (Primary Care) Vital Signs: Last Vital Signs Temp 98.2 F 02/06/25 14:05 Pulse 91 02/06/25 14:05 BP 135/77 02/06/25 14:05 Pulse Ox 96 02/06/25 14:05 Oxygen Delivery Method Room Air 02/06/25 14:05 BMI result Body Mass Index 25.4 Tobacco/Smoking Status: Tobacco use Status Tobacco use date assessed 01/24/25 02/06/25 14:01 Patient Tobacco Use Status Former Tobacco user 02/06/25 14:05 e-Cigarette/Vaping Use Never Used 02/06/25 14:05 PHQ-9: PHQ-9 Score PHQ-9: Total score 0 02/07/25 07:19 Depression Screening Interpretation: Negative Thrive Assessment: Date of Thrive Assessment Date Thrive assessed 01/24/25 02/06/25 14:01 Currently or been in a relationship where the following occur: No concerns reported Narrative Physical Exam General: Well-appearing, in no acute distress. Vital signs: Within normal limits. HEENT: Normocephalic, atraumatic. PERRLA, EOMI. Conjunctiva clear, sclera anicteric. Oropharynx clear, mucous membranes moist. TMs intact bilaterally. Neck: Supple, no lymphadenopathy, no thyromegaly, no JVD or carotid bruits. Cardiovascular: RRR, normal S1/S2, no murmurs, rubs, or gallops. Peripheral pulses 2+ and symmetric. No edema. Respiratory: Lungs clear to auscultation bilaterally, no wheezes, rales, or rhonchi. Normal effort. Abdomen: Soft, non-tender, non-distended. Normoactive bowel sounds. No hepatosplenomegaly, no masses. MSK: Full range of motion, no joint swelling or deformity. Normal gait. Skin: Warm, dry, intact. No rashes, lesions, or pallor. -suprpubic cath in place Neuro: Alert and oriented x3. Cranial nerves II-XII intact. Strength 5/5 throughout. Sensation intact. Reflexes 2+ symmetric. Normal coordination and gait. Psych: Appropriate mood and affect. Normal judgment and insight. Coding Level of Care Code Est Pt Level 3 (26629) Add On Problem Visit Only Diagnoses Chronic kidney disease (CKD), stage 4 N18.4 UTI (urinary tract infection) N39.0 Suprapubic catheter Z93.59 Type 2 diabetes mellitus E11.9 Low vitamin B12 level R79.89 Hypertension I10 Hypothyroidism E03.9 Hyperlipidemia E78.5 Mood disorder F39 MDD (major depressive disorder) F32.9 Tobacco use Z72.0 COPD (chronic obstructive pulmonary disease) J44.9 Urinary retention R33.9 Cystostomy status Z93.50 Additional Codes RAMÍREZ-7 Assessment Billing - RAMÍREZ-7 Assessment Tool: RAMÍREZ-7 Assessment 39510 ([id number]) PHQ-9 - 68247 - PHQ-9 Billing: Yes ([id number]) Assessment & Plan Assessment & Plan (1) Chronic kidney disease (CKD), stage 4: Code(s): N18.4 - Chronic kidney disease, stage 4 (severe) Category: Medical (2) UTI (urinary tract infection): Code(s): N39.0 - Urinary tract infection, site not specified Category: Medical (3) Suprapubic catheter: Code(s): Z93.59 - Other cystostomy status Category: Medical (4) Type 2 diabetes mellitus: Code(s): E11.9 - Type 2 diabetes mellitus without complications Category: Medical (5) Low vitamin B12 level: Code(s): R79.89 - Other specified abnormal findings of blood chemistry Category: Medical (6) Hypertension: Code(s): I10 - Essential (primary) hypertension Category: Medical (7) Hypothyroidism: Code(s): E03.9 - Hypothyroidism, unspecified Category: Medical (8) Hyperlipidemia: Code(s): E78.5 - Hyperlipidemia, unspecified Category: Medical (9) Mood disorder: Code(s): F39 - Unspecified mood [affective] disorder Category: Medical (10) MDD (major depressive disorder): Code(s): F32.9 - Major depressive disorder, single episode, unspecified Category: Medical (11) Tobacco use: Code(s): Z72.0 - Tobacco use Category: Social Hx (12) COPD (chronic obstructive pulmonary disease): Code(s): J44.9 - Chronic obstructive pulmonary disease, unspecified Category: Medical (13) Urinary retention: Code(s): R33.9 - Retention of urine, unspecified Category: Medical (14) Cystostomy status: Code(s): Z93.50 - Unspecified cystostomy status Category: Surgical Plan Consent No procedures requiring specific consent were performed or discussed. Patient was informed and verbally consented to the use of an ambient scribe for clinic note documentation during this visit. Plan 1. Chronic Kidney Disease, Stage 4 - Lab results confirm stage 4 CKD with an eGFR of 19. - A referral will be placed for the patient to establish care with a final tester for specialist management. - Instructed the patient's caregiver to initiate a renal diet. - Advised to strictly avoid nephrotoxic NSAIDs like ibuprofen, Advil, and Motrin; Tylenol is acceptable. - No iron supplementation is warranted at this time as his hemoglobin is a dequate at 14.1. 2. Urinary Tract Infection - Urinalysis findings of positive nitrites and moderate leukocyte esterase are indicative of a UTI, which will be treated to prevent pyelonephritis. - Continue monthly follow-up with urology for suprapubic catheter changes. - The use of prophylactic antibiotics is a decision best left to the managing urologist to avoid potential antibiotic resistance. 3. Suboptimal Vitamin B12 - Vitamin B12 level was low-normal at 215. - Will supplement vitamin B12 to improve energy levels. 4. Medication Management - Will refill triamcinolone, trazodone, simvastatin, polyethylene glycol, paroxetine, Myrbetriq, levothyroxine, lamotrigine, an unspecified inhaler, Wellbutrin, and amlodipine. - The patient is appropriately using [id number]-igxvaut Eucerin instead of Lac- Hydrin, which will not be refilled. - The patient's psychiatry provider will be awaiting these lab results for their medication management. Discussion Notes I reviewed the patient's recent lab results with his caregiver. The results confirmed stage 4 chronic kidney disease with a GFR of 19, and I explained the importance of specialist care, for which I have placed a referral to nephrology. We discussed the need for a renal diet and the importance of avoiding NSAIDs like ibuprofen to protect his kidneys. The urinalysis indicated a urinary tract infection, which I will treat. We discussed that the patient sees urology monthly for his suprapubic catheter, and any decisions regarding prophylactic antibiotics should be made by that specialist to avoid creating resistance. I noted that his blood sugar and HbA1c are excellent, ruling out active diabetes. His vitamin B12 level was on the low side, so I recommended starting a supplement. I confirmed that I will refill his current chronic medications. We confirmed referrals are in place for podiatry, psychiatry, and a Cologuard screening. The caregiver confirmed that the patient has adequate support resources. We agreed to a follow-up appointment in three months. Patient Instructions - Follow a renal diet, which is a diet low in sodium, potassium, and phosphorus to help protect your kidneys. - Do not take pain medications like ibuprofen (Advil, Motrin). It is safe to take Tylenol if you need it. - Begin taking a vitamin B12 supplement to help with your energy levels. - A referral has been sent for you to see a kidney specialist (final tester) to help manage your kidney disease. - Continue to follow up with your other specialists, including podiatry and psychiatry. - Please complete the Cologuard test kit for colon cancer screening when you are able. - All of your regular medications have been refilled and sent to your pharmacy. - Your next follow-up appointment with our office will be in about three months. Medical Decision Making This 64-year-old male has a complex medical history, with the most pressing issue being stage 4 chronic kidney disease, which was confirmed by recent labs showing an eGFR of 19 and a creatinine of 3.27. The primary goal is to establish care with nephrology to guide management and slow disease progression, for which a referral has been placed. His hemoglobin is surprisingly stable at 14.1, thus management for anemia of chronic kidney disease is not required at this time. The urinalysis revealed clear evidence of a UTI, warranting antibiotic treatment to prevent pyelonephritis, a significant risk given his compromised renal function. Prophylactic antibiotic therapy for his indwelling suprapubic catheter was considered, but given the high risk of developing antibiotic resistance, I have deferred this decision to his urologist who manages the catheter. Although the patient's record notes a history of diabetes, his current HbA1c of 5.4% and random glucose of 98 do not support an active diagnosis, suggesting it is either resolved or was a misdiagnosis. A low-normal vitamin B12 level of 215 prompted the recommendation for supplementation to potentially improve his armani rgy levels. The patient's chronic medications were reviewed and refilled to ensure continuity of care, and his caregiver was counseled on crucial lifestyle modifications, including a renal diet and avoidance of nephrotoxic agents. Coordinated care is being reinforced through referrals to podiatry, psychiatry, and for Cologuard screening. Total Time Statement 20 min Total time spent caring for the patient today includes pre-visit chart review, documentation, review of laboratory and diagnostic imaging results, medication reconciliation, medically necessary evaluation, counseling on diagnoses, care coordination, ordering appropriate tests and medications, review of tests performed by other providers, reporting test results to the patient, and communication with other healthcare providers. Orders: Referrals Nephrology Referral N18.4 - Chronic kidney disease, stage 4 (severe) Pulmonology Referral J44.9 - Chronic obstructive pulmonary disease, unspecified Medications: New mecobalamin (vitamin B12) place tablet under tongue and allow to dissolve for at least30 secs before swallowing 1,000 mcg sublingual BEDTIME 90 tabs 0RF
[2025-02-06 14:05] VITALS: BP 135/77; PULSE 91; TEMP 36.8; O2SAT 96; BMI 25.4
--- OUTSIDE RECORDS SUMMARY | 2025-02-06 18:14 | XMS_ITS | Clinical Summary ---
Author Organization [address] [facility] Address [address] [place] [address] Phone Care Team Providers Care Comsec Manager Name Role Phone Dajuan Polanco MD Primary Care Provider Encounters Date Type Department Care Team Description 01/15/2025 Lab Requisition [facility] Lab [address] [place] [address] Geovanni Ba PA Urinary tract infection, site not specified 12/09/2024 Lab Requisition [facility] Lab [address] [place] [address] Dajuan Polanco MD Hypothyroidism, unspecified [...] if clinically indicated. 01/16/2025 1:31 PM EST [facility] Urine Indwelling urinary catheter / Unknown 01/15/2025 01/15/2025 5:44 PM EST Geovanni WANG LAB MICROBIOLOGY - GENERAL ELENA CASEY Final Result Performing Organization Address City/[facility]/ZIP Co de Phone Number [facility] [address] [place] [address], [place] [phone] * Lavender tube (12/09/2024 7:20 AM EDT) [facility] Extra Tube Hold for add-ons. 12/09/2024 11:01 AM EDT [facility] Comment:Auto resulted. Blood Venous blood specimen / Unknown Venipuncture / Unknown 12/09/2024 7:20 AM EDT 12/09/2024 9:53 AM EDT Dajuan Polanco MD LAB BLOOD ORDERABLES Final R esult Performing Organization Address [facility]/ZIP Co de Phone Number [facility] [address] [place] [address], [place] [phone] * Phosphorus (12/09/2024 7:20 AM EDT) [facility] Phosphorus 4.0 2.5 - 4.5 mg/dL LAB CHEMISTRY METHOD 12/09/2024 11:01 AM EDT [facility] Blood Venous blood specimen / Unknown Venipuncture / Unknown 12/09/2024 7:20 AM EDT 12/09/2024 9:53 AM EDT us Dajuan Polanco MD LAB BLOOD ORDERABLES Final R esult Performing Organization Address City/[facility]/ZIP Co de Phone Number [facility] [address] [place] [address], [place] [phone] * Parathyroid hormone intact (12/09/2024 7:20 AM EDT) Pathologist [facility] PTH 84.6 18.5 - 88.0 pcg/mL LAB CHEMISTRY METHOD 12/09/2024 12:42 PM EDT [facility] Blood Venous blood specimen / Unknown Venipuncture / Unknown 12/09/2024 7:20 AM EDT 12/09/2024 9:53 AM EDT us Dajuan Polanco MD LAB BLOOD ORDERABLES Final R esult [facility] [address] [place] [address], [place] [phone] * Lipid panel with reflex to direct LDL (10/15/2024 7:18 AM EDT) [facility] Cholesterol 163 0 - 200 mg/dL LAB CHEMISTRY METHOD 10/15/2024 10:11 AM [facility] Triglycerides 63 0 - 150 mg/dL LAB CHEMISTRY METHOD 10/15/2024 10:11 AM [facility] HDL 69 >=40 mg/dL LAB CHEMISTRY METHOD 10/15/2024 10:11 AM [facility] LDL Calculated 81 0 - 100 mg/dL LAB CHEMISTRY METHOD 10/15/2024 10:11 AM T [facility] Comment:Estimated LDL Calcul ated using equation: Total cholesterol - HDL cholesterol - (Triglycerides/5) VLDL Cholesterol Orlin 12.6 mg/dL LAB CHEMISTRY METHOD 10/15/2024 10:11 AM [facility] Non HDL Chol. (LDL+VLDL) 94 <145 mg/dL LAB CHEMISTRY METHOD 10/15/2024 10:11 AM [facility] Chol/HDL Ratio 2.4 0.0 - 4.4 LAB CHEMISTRY METHOD 10/15/2024 10:11 AM EDT [facility] Blood Venous blood specimen / Unknown Venipuncture / Unknown 10/15/2024 7:18 AM EDT 10/15/2024 8:38 AM EDT Dajuan Polanco MD LAB BLOOD ORDERABLES Final R esult [facility] [address] [place] [address], * External Colonoscopy Report (04/06/2011 8:18 AM EST) Anatomical Region Laterality Modality Endoscopy Historical Provider GI~PROCEDURE ORDERABLES F inal Result from Last 3 Months or Most Recently Relevant to Health Maintenance Insurance MEDICARE MEDICAID - [place] Care Teams Comsec Manager Relationship Specialty Start Date End Date Dajuan Polanco MD [address] [place] [address] PCP - General Family Medicine 01/04/24
--- OUTSIDE RECORDS SUMMARY | 2025-02-06 18:14 | XMS_ITS | Encounter Summary ---
Author Organization [facility] Address [address] [place] [address] Care Team Providers Care Neck Cutter Name Role Phone Dajuan Polanco MD Primary Care Provider + [phone] Encounter Details Date Type Department Care Team (Late st Contact Info) Description 01/01/2024 Lab Requisition [facility] - Main Lab [address] [facility] [employer] [place] [address] Dajuan Polanco MD [address] [place] [address] Other abnormal tumor markers; Hypothyroidism, unspecified Social [...] LAB CHEMISTRY METHOD 01/01/2024 2:10 PM EST [facility] Blood Venous blood specimen / Unknown Venipuncture / Unknown 01/01/2024 9:41 AM EST 01/01/2024 10:49 AM EST Dajuan Polanco MD LAB BLOOD ORDERABLES Final R esult Performing Organization Address City/[facility]/ZIP Co de Phone Number [facility] [address] [place] [address], [place] [phone] * Free thyroxine with reflex to free triiodothyronine (01/01/2024 9:41 AM EST) Free T4 1.38 0.70 - 1.80 ng/dL LAB CHEMISTRY METHOD 01/01/2024 1:44 PM EST [facility] Blood Venous blood specimen / Unknown Venipuncture / Unknown 01/01/2024 9:41 AM EST 01/01/2024 10:49 AM EST Dajuan Polanco MD LAB BLOOD ORDERABLES Final R esult [facility] [address] [place] [address], [place] [phone] * Alpha fetoprotein tumor marker (01/01/2024 9:41 AM EST) AFP 3.2 0.0 - 8.0 ng/mL LAB CHEMISTRY METHOD 01/01/2024 1:06 PM EST [facility] Blood Venous blood specimen / Unknown Venipuncture / Unknown 01/01/2024 9:41 AM EST 01/01/2024 10:49 AM EST Narrative [facility] - 01/01/2024 1:06 PM EST The Siemens Advia Centaur Chemiluminescent Immunoassay is used. Results obtained with different assay methods or kits cannot be used interchangeably. Results cannot be interpreted as absolute evidence of the presence or absence of malignant disease. Dajuan Polanco MD LAB BLOOD ORDERABLES Final R esult Performing Organization Address City/[facility] Co de Phone Number [facility] [address] [place] [address], [place] [phone] * (ABNORMAL) Thyroglobulin antibody (01/01/2024 9:41 AM EST) Antithyroglobulin Ab 91.0(H) <=60.0 I Unit/mL LAB CHEMISTRY METHOD 01/01/2024 1:26 PM EST [facility] Blood Venous blood specimen / Unknown Venipuncture / Unknown 01/01/2024 9:41 AM EST 01/01/2024 10:49 AM EST Dajuan Polanco MD LAB BLOOD ORDERABLES Final R esult Performing Organization Address [facility] Co de Phone Number [facility] [address] [place] [address], [place] [phone] * (ABNORMAL) Thyroid stimulating hormone with reflex to free t4 and free t3 (01/01/2024 9:41 AM EST) TSH 6.77(H) 0.40 - 4.00 mcIU/mL LAB CHEMISTRY METHOD 01/01/2024 1:19 PM EST [facility] Blood Venous blood specimen / Unknown Venipuncture / Unknown 01/01/2024 9:41 AM EST 01/01/2024 10:49 AM EST Dajuan Polanco MD LAB BLOOD ORDERABLES Final R esult Performing Organization Address City/[facility] Co de Phone Number [facility] [address] [place] [address], documented in this encounter Visit Diagnoses Diagnosis Other abnormal tumor markers Hypothyroidism, unspecified documented in this encounter Additional Health Concerns Infection Onset Date Last Indicated Resolved Time Influenza 04/13/2024 04/13/2024 05/07/2024 7:04 PM EDT Respiratory Rule-Out 04/14/2024 04/13/2024 025 11:40 AM EST documented as of this encounter Care Teams Neck Cutter Relationship Specialty Start Date End Date Dajuan Polanco MD [address] [place] [address] PCP - General Family Medicine 01/04/24 documented as of this encounter
--- OUTSIDE RECORDS SUMMARY | 2025-02-06 18:14 | XMS_ITS | Encounter Summary ---
Author Organization [facility] Address [address] [place] [address] Care Team Providers Care Margin Analyst Name Role Phone Dajuan Polanco MD Primary Care Provider [phone]- [phone] Encounter Details Date Type Department Care Team (Late st Contact Info) Description 01/15/[address] [facility] - Main Lab [address] [place] [address] Geovanni Ba PA [address] [place] [address] Urinary tract infection, site not specified Social [...] if clinically indicated. 01/16/2025 1:31 PM EST [facility] Urine Indwelling urinary catheter / Unknown 01/15/2025 01/15/2025 5:44 PM EST us Geovanni WANG LAB MICROBIOLOGY - GENERAL ORDE CARMELA Final Result [facility] [address] [place] [address], documented in this encounter Visit Diagnoses Diagnosis Urinary tract infection, site not specified documented in this encounter Care Teams Margin Analyst Relationship Specialty Start Date End Date Dajuan Polanco MD [address] [place] [address] PCP - General Family Medicine 01/04/24 documented as of this encounter
--- OUTSIDE RECORDS SUMMARY | 2025-02-06 18:14 | XMS_ITS | Encounter Summary ---
Author Organization [facility] Address [id number] [place] [id number] Care Team Providers Care Treasury Manager Name Role Phone Dajuan Polanco MD Primary Care Provider [phone]- [phone] Encounter Details Date Type Department Care Team (Late st Contact Info) Description 01/01/2024 Lab Requisition [facility] - Main Lab [address] [facility] [place] [address] Dajuan Polanco MD [address] [place] [address] Social History Tobacco Use Types Packs/Day Years [...] documented as of this encounter Care Teams Treasury Manager Relationship Specialty Start Date End Date Dajuan Polanco MD [address] [place] [address] PCP - General Family Medicine 01/04/24 documented as of this encounter
--- OUTSIDE RECORDS SUMMARY | 2025-02-06 18:14 | XMS_ITS | Encounter Summary ---
Author Organization [facility] Address [address] [place] [address] Care Team Providers Care Risk Management Specialist Name Role Phone Dajuan Polanco MD Primary Care Provider [phone] Encounter Details Date Type Department Care Team (Late st Contact Info) Description 12/09/[address] [facility] - Main Lab [address] [facility] [place] [address] Dajuan Polanco MD [address] [place] [address] Hypothyroidism, unspecified Social History Tobacco Use Types [...] Hold for add-ons. 12/09/2024 11:01 AM EDT [facility] Comment:Auto resulted. Blood Venous blood specimen / Unknown Venipuncture / Unknown 12/09/2024 7:20 AM EDT 12/09/2024 9:53 AM EDT Dajuan Polanco MD LAB BLOOD ORDERABLES Final R esult Performing Organization Address [facility] Co de Phone Number [facility] [address] [place] [address], [place] [phone] * Parathyroid hormone intact (12/09/2024 7:20 AM EDT) PTH 84.6 18.5 - 88.0 pcg/mL LAB CHEMISTRY METHOD 12/09/2024 12:42 PM EDT [facility] Blood Venous blood specimen / Unknown Venipuncture / Unknown 12/09/2024 7:20 AM EDT 12/09/2024 9:53 AM EDT Dajuan Polanco MD LAB BLOOD ORDERABLES Final R esult Performing Organization Address [facility] Co de Phone Number [facility] [address] [place] [address], [place] [phone] * Phosphorus (12/09/2024 7:20 AM EDT) Pathologist [facility] Phosphorus 4.0 2.5 - 4.5 mg/dL LAB CHEMISTRY METHOD 12/09/2024 11:01 AM EDT [facility] Blood Venous blood specimen / Unknown Venipuncture / Unknown 12/09/2024 7:20 AM EDT 12/09/2024 9:53 AM EDT Dajuan Polanco MD LAB BLOOD ORDERABLES Final R esult Performing Organization Address City/[facility]/ZIP Co de Phone Number [facility] [address] [place] [address], [place] [phone] documented in this encounter Visit Diagnoses Diagnosis Hypothyroidism, unspecified documented in this encounter Care Teams Risk Management Specialist Relationship Specialty Start Date End Date Dajuan Polanco MD [address] [place] [address] PCP - General Family Medicine 01/04/24 documented as of this encounter
--- OUTSIDE RECORDS SUMMARY | 2025-02-06 18:15 | XMS_ITS | Encounter Summary ---
Author Organization [facility] Address [address] [place] [address] Care Team Providers Care Control Equipment Electrician Name Role Phone Dajuan Polanco MD Primary Care Provider [phone] Encounter Details Date Type Department Care Team (Late st Contact Info) Description 10/15/2024 Lab Requisition [facility] - Main Lab [address] [facility] [place] [address] Dajuan Polanco MD [address] [place] [address] Malignant neoplasm of thyroid gland (CMS/HCC V24, [...] neoplasm of thyroid gland ([facility] V24, [facility] V28) Hypothyroidism, unspecified Type 2 diabetes mellitus with diabetic chronic kidney disease ([facility]/HCC V24, [facility]/HCC V28) Unspecified mood (affective) disorder ([facility]/HCC V24) Vitamin D deficiency, unspecified TRIIODOTHYRONINE TOTAL Routine 7:18 AM EDT Malignant neoplasm of thyroid gland ([facility] V24, [facility] V28) Hypothyroidism, unspecified Type 2 diabetes mellitus with diabetic chronic kidney disease ([facility]/HCC V24, [facility] V28) Unspecified mood (affective) disorder ([facility] V24) Vitamin D deficiency, unspecified THYROID STIMULATING HORMONE Routine 10/15/2024 7:18 AM EDT Malignant neoplasm of thyroid gland ([facility]/HCC V24, [facility] V28) Hypothyroidism, unspecified Type 2 diabetes mellitus with diabetic chronic kidney disease ([facility]/HCC V24, [facility]/HCC V28) Unspecified mood (affective) disorder ([facility] V24) Vitamin D deficiency, unspecified THYROXINE TOTAL Routine 10/15/2024 7:18 AM EDT Malignant neoplasm of thyroid gland ([facility]/HCC V24, [facility] V28) Hypothyroidism, unspecified Type 2 diabetes mellitus with diabetic chronic kidney disease ([facility]/HCC V24, [facility]/HCC V28) Unspecified mood (affective) disorder ([facility]/HCC V24) Vitamin D deficiency, unspecified HEMOGLOBIN A1C Routine 10/15/2024 7:18 AM EDT Malignant neoplasm of thyroid gland ([facility]/HCC V24, [facility] V28) Hypothyroidism, unspecified Type 2 diabetes mellitus with diabetic chronic kidney disease ([facility]/HCC V24, [facility]/HCC V28) Unspecified mood (affective) disorder (CMS/HCC V24) Vitamin D deficiency, unspecified VITAMIN B12 Routine 10/15/2024 7:18 AM EDT Malignant neoplasm of thyroid gland ([facility] V24, [facility] V28) Hypothyroidism, unspecified Type 2 diabetes mellitus with diabetic chronic kidney disease ([facility] V24, [facility] V28) Unspecified mood (affective) disorder ([facility] V24) Vitamin D deficiency, unspecified COMPREHENSIVE METABOLIC PANEL Routine 10/15/2024 7:18 AM EDT Malignant neoplasm of thyroid gland ([facility] V24, [facility] V28) Hypothyroidism, unspecified Type 2 diabetes mellitus with diabetic chronic kidney disease ([facility] V24, [facility] V28) Unspecified mood (affective) disorder ([facility] V24) Vitamin D deficiency, unspecified documented in this encounter Results * Vitamin B12 (10/15/2024 7:18 AM EDT) [facility] Vitamin B-12 400 250 - 900 pcg/mL LAB CHEMISTRY METHOD 10/15/2024 10:[address] [facility] Blood Venous blood specimen / Unknown Venipuncture / Unknown 10/15/2024 7:18 AM EDT 10/15/2024 8:38 AM EDT us Dajuan Polanco MD LAB BLOOD ORDERABLES Final R esult [facility] [address] [place] [address], * (ABNORMAL) Vitamin D 25 hydroxy (10/15/2024 7:18 AM EDT) [facility] Vit D, 25-Hydroxy 28.6(L) 30.0 - 80.0 ng/mL LAB CHEMISTRY METHOD 10/15/2024 12:[address] [facility] Blood Venous blood specimen / Unknown Venipuncture / Unknown 10/15/2024 7:18 AM EDT 10/15/2024 8:38 AM EDT Dajuan Polanco MD LAB BLOOD ORDERABLES Final R esult Performing Organization Address City/[facility]/ZIP Co de Phone Number [facility] [address] [place] [address], [place] [phone] * Hemoglobin A1c (10/15/2024 7:18 AM EDT) [facility] Hemoglobin A1C 5.6 <6.5 % LAB CHEMISTRY METHOD 10/15/2024 1:[address] [facility] Mean Bld Glu Estim. 114 mg/dL LAB CHEMISTRY METHOD 10/15/2024 1:[address] [facility] Blood Venous blood specimen / Unknown Venipuncture / Unknown 10/15/2024 7:18 AM EDT 10/15/2024 8:38 AM EDT Dajuan Polanco MD LAB BLOOD ORDERABLES Final R esult Performing Organization Address [facility]/ZIP Co de Phone Number [facility] [address] [place] [address], [place] [phone] * Thyroxine total (10/15/2024 7:18 AM EDT) [facility] T4, Total 10.6 4.5 - 10.9 mcg/dL LAB CHEMISTRY METHOD 10/15/2024 1:[address] [facility] Blood Venous blood specimen / Unknown Venipuncture / Unknown 10/15/2024 7:18 AM EDT 10/15/2024 8:38 AM EDT us Dajuan Polanco MD LAB BLOOD ORDERABLES Final R esult Performing Organization Address City/[facility]/ZIP Co de Phone Number [facility] [address] [place] [address], [place] [phone] * Triiodothyronine total (10/15/2024 7:18 AM EDT) T3, Total 78.29 60.00 - 181.00 ng/dL LAB CHEMISTRY METHOD 10/15/2024 12:[address] [facility] Blood Venous blood specimen / Unknown Venipuncture / Unknown 10/15/2024 7:18 AM EDT 10/15/2024 8:38 AM EDT Dajuan Polanco MD LAB BLOOD ORDERABLES Final R esult [facility] [address] [place] [address], [place] [phone] * (ABNORMAL) Thyroid stimulating hormone (10/15/2024 7:18 AM EDT) Pathologist [facility] TSH 4.52(H) 0.40 - 4.00 mcIU/mL LAB CHEMISTRY METHOD 10/15/2024 12:[address] [facility] Blood Venous blood specimen / Unknown Venipuncture / Unknown 10/15/2024 7:18 AM EDT 10/15/2024 8:38 AM EDT Dajuan Polanco MD LAB BLOOD ORDERABLES Final R esult Performing Organization Address City/[facility]/ZIP Co de Phone Number [facility] [address] [place] [address], [place] [phone] * Lipid panel with reflex to direct LDL (10/15/2024 7:18 AM EDT) Pathologist [facility] Cholesterol 163 0 - 200 mg/dL LAB CHEMISTRY METHOD 10/15/2024 10:[address] [facility] Triglycerides 63 0 - 150 mg/dL LAB CHEMISTRY METHOD 10/15/2024 10:[address] [facility] HDL 69 >=40 mg/dL LAB CHEMISTRY METHOD 10/15/2024 10:[address] [facility] LDL Calculated 81 0 - 100 mg/dL LAB CHEMISTRY METHOD 10/15/2024 10:[address] [facility] Comment:Estimated LDL Calcul ated using equation: Total cholesterol - HDL cholesterol - (Triglycerides/5) VLDL Cholesterol Orlin 12.6 mg/dL LAB CHEMISTRY METHOD 10/15/2024 10:[address] [facility] Non HDL Chol. (LDL+VLDL) 94 <145 mg/dL LAB CHEMISTRY METHOD 10/15/2024 10:11 AM [facility] Chol/HDL Ratio 2.4 0.0 - 4.4 LAB CHEMISTRY METHOD 10/15/2024 10:11 AM [facility] Blood Venous blood specimen / Unknown Venipuncture / Unknown 10/15/2024 7:18 AM EDT 10/15/2024 8:38 AM EDT Dajuan Polanco MD LAB BLOOD ORDERABLES Final R esult [facility] [address] [place] [address], * (ABNORMAL) Comprehensive metabolic panel (10/15/2024 7:18 AM EDT) Sodium 141 133 - 145 mmol/L LAB CHEMISTRY METHOD 10/15/2024 9:44 AM [facility] Potassium 4.0 3.5 - 5.5 mmol/L LAB CHEMISTRY METHOD 10/15/2024 9:44 AM [facility] Chloride 108 96 - 110 mmol/L LAB CHEMISTRY METHOD 10/15/2024 9:44 AM [facility] CO2 27 21 - 32 mmol/L LAB CHEMISTRY METHOD 10/15/2024 9:44 AM [facility] Anion Gap 6 3 - 11 LAB CHEMISTRY METHOD 10/15/2024 9:44 AM [facility] Glucose 85 70 - 100 mg/dL LAB CHEMISTRY METHOD 10/15/2024 9:44 AM [facility] BUN 40(H) 5 - 25 mg/dL LAB CHEMISTRY METHOD 10/15/2024 9:44 AM [facility] Creatinine 2.96(H) 0.70 - 1.30 mg/dL LAB CHEMISTRY METHOD 10/15/2024 9:44 AM [facility] eGFR 23(L) >=60 mL/min/1. 73m2 LAB CHEMISTRY METHOD 10/15/2024 9:44 AM [facility] Comment:Calculation based on the Chronic Kidney Disease Epidemiology Collaboration (CKD-EPI) equation refit without adjustment for race. BUN/Creatinine Ratio 13.5 LAB CHEMISTRY METHOD 10/15/2024 9:44 AM [facility] Calcium 8.2(L) 8.5 - 10.5 mg/dL LAB CHEMISTRY METHOD 10/15/2024 9:44 AM [facility] AST (SGOT) 19 10 - 42 unit/L LAB CHEMISTRY METHOD 10/15/2024 9:44 AM [facility] ALT (SGPT) 22 10 - 60 unit/L LAB CHEMISTRY METHOD 10/15/2024 9:44 AM [facility] Alkaline Phosphatase 87 42 - 121 unit/L LAB CHEMISTRY METHOD 10/15/2024 9:44 AM [facility] Total Protein 6.4 6.0 - 8.0 g/dL LAB CHEMISTRY METHOD 10/15/2024 9:44 AM [facility] Albumin 3.7 3.2 - 5.0 g/dL LAB CHEMISTRY METHOD 10/15/2024 9:44 AM [facility] Total Bilirubin 0.5 0.0 - 1.4 mg/dL LAB CHEMISTRY METHOD 10/15/2024 9:44 AM [facility] Blood Venous blood specimen / Unknown Venipuncture / Unknown 10/15/2024 7:18 AM EDT 10/15/2024 8:38 AM EDT Dajuan Polanco MD LAB BLOOD ORDERABLES Final R esult [facility] [address] [place] [address], * Complete blood count (10/15/2024 7:18 AM EDT) WBC 5.4 4.8 - 10.8 K/mcL LAB HEMETOLOGY METHOD 10/15/2024 9:[address] [facility] RBC 4.60 4.50 - 5.50 M/mcL LAB [facility]OLOG[facility] Hemoglobin 13.8 13.5 - 17.5 g/dL LAB HEMETOLOGY METHOD 10/15/2024 9:[address] [facility] Hematocrit 42.6 42.0 - 54.0 % LAB HEMETOLOGY METHOD 10/15/2024 9:32 AM [facility] MCV 93.6 79.0 - 98.0 FL LAB HEMETOLOGY METHOD 10/15/2024 9:[address] [facility] MCH 30.3 27.0 - 32.0 pcg LAB HEMETOLOGY METHOD 10/15/2024 9:32 AM [facility] MCHC 32.4 32.0 - 37.0 g/dL LAB HEMETOLOGY METHOD 10/15/2024 9:32 AM [facility] RDW 13.1 11.0 - 15.0 % LAB HEMETOLOGY METHOD 10/15/2024 9:32 AM [facility] Platelets 267 130 - 400 K/mcL LAB HEMETOLOGY METHOD 10/15/2024 9:[address] [facility] MPV 9.9 7.0 - 11.0 FL LAB HEMETOLOGY METHOD 10/15/2024 9:[address] [facility] NRBC 0.0 <1.0 % LAB HEMETOLOGY METHOD 10/15/2024 9:[address] [facility] NRBC Absolute 0.00 <0.10 K/mcL LAB HEMETOLOGY METHOD 10/15/2024 9:[address] [facility] Blood Venous blood specimen / Unknown Venipuncture / Unknown 10/15/2024 7:18 AM EDT 10/15/2024 8:38 AM EDT us Dajuan Polanco MD LAB BLOOD ORDERABLES Final R esult [facility] [address] [place] [address], documented in this encounter Visit Diagnoses Diagnosis Malignant neoplasm of thyroid gland (CMS/HCC V24, CMS/HCC V28) Malignant neoplasm of thyroid gland Hypothyroidism, unspecified Type 2 diabetes mellitus with diabetic chronic kidney disease (CMS/HCC V24, [facility]/HCC V28) Unspecified mood (affective) disorder (CMS/HCC V24) Vitamin D deficiency, unspecified documented in this encounter Care Teams Control Equipment Electrician Relationship Specialty Start Date End Date Dajuan Polanco MD [address] [place] [address] PCP - General Family Medicine 01/04/24 documented as of this encounter
--- OUTSIDE RECORDS SUMMARY | 2025-02-06 18:15 | XMS_ITS | Encounter Summary ---
Author Organization [facility] Address [address] [place] [address] Care Team Providers Care Batch Tank Controller Name Role Phone Dajuan Polanco MD Primary Care Provider [phone] Encounter Details Date Type Department Care Team (Late st Contact Info) Description 04/11/2024 Lab Requisition [facility] - Main Lab [address] [place] [address] Dajuan Polanco MD [address] [place] [address] Weakness Social History Tobacco Use Types Packs/Day [...] LAB CHEMISTRY METHOD 04/11/2024 12:04 PM EST [facility] Potassium 4.0 3.5 - 5.5 mmol/L LAB CHEMISTRY METHOD 04/11/2024 12:04 PM EST [facility] Chloride 105 96 - 110 mmol/L LAB CHEMISTRY METHOD 04/11/2024 12:04 PM EST [facility] CO2 26 21 - 32 mmol/L LAB CHEMISTRY METHOD 04/11/2024 12:04 PM [facility] Anion Gap 9 3 - 11 LAB CHEMISTRY METHOD 04/11/2024 12:04 PM [facility] Glucose 123(H) 70 - 100 mg/dL LAB CHEMISTRY METHOD 04/11/2024 12:04 PM [facility] BUN 29(H) 5 - 25 mg/dL LAB CHEMISTRY METHOD 04/11/2024 12:04 PM [facility] Creatinine 2.90(H) 0.70 - 1.30 mg/dL LAB CHEMISTRY METHOD 04/11/2024 12:04 PM [facility] eGFR 24(L) >=60 mL/min/1. 73m2 LAB CHEMISTRY METHOD 04/11/2024 12:04 PM [facility] Comment:Calculation based on the Chronic Kidney Disease Epidemiology Collaboration (CKD-EPI) equation refit without adjustment for race. BUN/Creatinine Ratio 10.0 LAB CHEMISTRY METHOD 04/11/2024 12:04 PM [facility] Calcium 8.3(L) 8.5 - 10.5 mg/dL LAB CHEMISTRY METHOD 04/11/2024 12:04 PM [facility] Blood Venous blood specimen / Unknown Venipuncture / Unknown 04/11/2024 7:59 AM EST 04/11/2024 11:02 AM EST us Dajuan Polanco MD LAB BLOOD ORDERABLES Final R esult [facility] [address] [place] [address], * (ABNORMAL) Complete blood count (04/11/2024 7:59 AM EST) WBC 4.6(L) 4.8 - 10.8 K/mcL LAB HEMETOLOGY METHOD 04/11/2024 12:41 PM [facility] RBC 4.30(L) 4.50 - 5.50 M/mcL LAB HEMETOLOGY METHOD 04/11/2024 12:41 PM [facility] Hemoglobin 13.1(L) 13.5 - 17.5 g/dL LAB HEMETOLOGY METHOD 04/11/2024 12:41 PM [facility] Hematocrit 40.7(L) 42.0 - 54.0 % LAB HEMETOLOGY METHOD 04/11/2024 12:41 PM [facility] MCV 94.4 79.0 - 98.0 FL LAB HEMETOLOGY METHOD 04/11/2024 12:41 PM [facility] MCH 30.4 27.0 - 32.0 pcg LAB HEMETOLOGY METHOD 04/11/2024 12:41 PM [facility] MCHC 32.2 32.0 - 37.0 g/dL LAB HEMETOLOGY METHOD 04/11/2024 12:41 PM [facility] RDW 13.8 11.0 - 15.0 % LAB HEMETOLOGY METHOD 04/11/2024 12:41 PM [facility] Platelets 237 130 - 400 K/mcL LAB HEMETOLOGY METHOD 04/11/2024 12:41 PM [facility] MPV 10.1 7.0 - 11.0 FL LAB HEMETOLOGY METHOD 04/11/2024 12:41 PM [facility] NRBC 0.0 <1.0 % LAB HEMETOLOGY METHOD 04/11/2024 12:41 PM [facility] NRBC Absolute 0.00 <0.10 K/mcL LAB HEMETOLOGY METHOD 04/11/2024 12:41 PM [facility] Blood Venous blood specimen / Unknown Venipuncture / Unknown 04/11/2024 7:59 AM EST 04/11/2024 11:02 AM EST us Dajuan Polanco MD LAB BLOOD ORDERABLES Final R esult [facility] ([facility] [address] [place] [address], documented in this encounter Visit Diagnoses Diagnosis Weakness Other malaise and fatigue documented in this encounter Additional Health Concerns Infection Onset Date Last Indicated Resolved Time Influenza 04/13/2024 04/13/2024 05/07/2024 7:04 PM EDT Respiratory Rule-Out 04/14/2024 04/13/2024 025 11:40 AM EST documented as of this encounter Care Teams Batch Tank Controller Relationship Specialty Start Date End Date Dajuan Polanco MD [address] [place] [address] PCP - General Family Medicine 01/04/24 documented as of this encounter
--- OUTSIDE RECORDS SUMMARY | 2025-02-06 18:15 | XMS_ITS | Encounter Summary ---
Author Organization [facility] Address [address] [place] [address] Care Team Providers Care Specialized Language Instructor Name Role Phone Dajuan Polanco MD Primary Care Provider [phone]- [phone] Encounter Details Date Type Department Care Team (Late st Contact Info) Description 04/14/2024 Lab Requisition [facility] - Main Lab [address] [place] [address] Dajuan Polanco MD [address] [place] [address] Acute cough Social History Tobacco Use Types [...] Procedure Name Priority Date/Time Associated Diagnosis Comments [id number], RSV, FLU A AND B QUALITATIVE RT-PCR, LOCAL REFERENCE LAB Routine 04/13/2024 12:00 AM EST Acute cough documented in this encounter Results * (ABNORMAL) [id number], RSV, Influenza A and B qualitative RT-PCR (04/13/2024 12:00 AM EST) SARS COV-2 Not Detected Not Detected LAB MOLECULAR DIAGNOSTICS METHOD 2024 11:40 AM EST [facility] ([facility] Comment: Disclaimer: The manner in which this information is used to guide patient care is the responsibility of the healthcare provider. Testing was performed using the [employer] m SARS-CoV-2 test. This test has been [...] for Healthcare Providers can be found at: https://www.fda.gov/media/332487/download Fact sheet for Patients can be found at: https://www.fda.gov/media/375368/download Influenza A PCR Detected(A ) Not Detected LAB MOLECULAR DIAGNOSTICS METHOD 2024 11:40 AM EST [facility] Comment:This patient is posi tive for influenza A. If the patient is admitted, please order the Respiratory Virus Panel PCR (Epic ID: [id number]) so our lab can subtype the influenza A, per CDC recommendations. Influenza B PCR Not Detected Not Detected LAB MOLECULAR DIAGNOSTICS METHOD 2024 11:40 AM EST [facility] RSV PCR Not Detected Not Detected LAB MOLECULAR DIAGNOSTICS METHOD 2024 11:40 AM [facility] Swab Nasopharyngeal structure / Unknown Non-blood Collection / Unknown 04/13/2024 04/14/2024 11:18 AM EST Dajuan Polanco MD LAB MICROBIOLOGY - GENERAL O RDERABLES Final Result [facility] [address] [place] [address], documented in this encounter Visit Diagnoses Diagnosis Acute cough documented in this encounter Additional Health Concerns Infection Onset Date Last Indicated Resolved Time Influenza 04/13/2024 04/13/2024 05/07/2024 7:04 PM EDT Respiratory Rule-Out 04/14/2024 04/13/2024 025 11:40 AM EST documented as of this encounter Care Teams Specialized Language Instructor Relationship Specialty Start Date End Date Dajuan Polanco MD [address] [place] [address] PCP - General Family Medicine 01/04/24 documented as of this encounter
== END 2025-02-06 14:28 | disposition home or self-care (01) ==
LOC: HO.HMCFMS 13:59
PROVIDERS: PCP Student in an Organized Health Care Education/Training Program; Visit Provider Student in an Organized Health Care Education/Training Program
DX: N18.4 Chronic kidney disease, stage 4 (severe) (principal); N39.0 Urinary tract infection, site not specified; Z93.59 Other cystostomy status; E11.9 Type 2 diabetes mellitus without complications; R79.89 Other specified abnormal findings of blood chemistry; I12.9 Hypertensive chronic kidney disease with stage 1 through stage 4 chronic kidney disease, or unspecified chronic kidney disease; E03.9 Hypothyroidism, unspecified; E78.5 Hyperlipidemia, unspecified; F39 Unspecified mood [affective] disorder; F32.9 Major depressive disorder, single episode, unspecified; Z72.0 Tobacco use; J44.9 Chronic obstructive pulmonary disease, unspecified; R33.9 Retention of urine, unspecified; Z93.50 Unspecified cystostomy status

== ENCOUNTER → 2025-02-06 13:59 | Outpatient (BNVA) | payer MEDICARE, MEDICAID, SELFPAY | PROVIDERS: PCP Student in an Organized Health Care Education/Training Program; Visit Provider Student in an Organized Health Care Education/Training Program | DX: Z71.2 Person consulting for explanation of examination or test findings (principal); N18.4 Chronic kidney disease, stage 4 (severe); E11.9 Type 2 diabetes mellitus without complications; E53.8 Deficiency of other specified B group vitamins; E78.5 Hyperlipidemia, unspecified; N39.0 Urinary tract infection, site not specified; E03.9 Hypothyroidism, unspecified; I10 Essential (primary) hypertension; F39 Unspecified mood [affective] disorder; F32.9 Major depressive disorder, single episode, unspecified; Z72.0 Tobacco use; Z13.31 Encounter for screening for depression; Z13.39 Encounter for screening examination for other mental health and behavioral disorders; J44.9 Chronic obstructive pulmonary disease, unspecified; R33.9 Retention of urine, unspecified; Z93.50 Unspecified cystostomy status | CPT/HCPCS: 96127; 99212 ==